=== PATIENT | female | born 1980 | race Caucasian/White ===

== ENCOUNTER 2020-08-11 11:15 | Outpatient (RCR) | payer OTHER, SELFPAY ==
--- NOTE | 2020-05-05 13:05 | PT.OIE ---
Current Diagnoses Pain in left shoulder (05/05/20) Abnormal posture (05/05/20) Past Medical History (Last Updated 04/14/20 @ 15:33 by La Mcpherson PA-C) Left shoulder pain (Acute) Visit Care Team Role Provider Type La Mcpherson PA-C Attending Provider Advanced Ticket Sales Supervisor Primary Care Provider Referring Provider Specialty: Internal Medicine Address: [address] [place] [address], [id number] Email: [email or web address] Physical Therapy Initial Evaluation PT-OP-A Visit Information Start: 05/05/20 08:50 Freq: Status: Active Protocol: Document 05/05/20 08:51 AW (Rec: 05/05/20 08:53 AW [id number]) Out-Patient Physical Therapy Visit Information Visit Information Visit Type Initial Evaluation Visit Start Time 11:15 Visit Stop Time 12:05 Total Visit Minutes 50 Visit Number 1 Evaluation Information Evaluation Date 05/05/20 PT-OP-B Current Condition Start: 05/05/20 08:50 Freq: Status: Active Protocol: Document 05/05/20 08:51 AW (Rec: 05/05/20 08:53 AW [id number]) Current Condition History of Current Condition Onset Date 04/11/20 Current Complaints left shoulder pain History of Current Condition Piedad was doing heavy gardening with a lot of rock shoveling and gardening. She had onset of pain ~04/11/20. She moved 5 cubic yards of rocks in a few days and noticed pain beginning on Sunday. When it didn't improve , she went to urgent care on where she received treatment with toradol. She was also provided with a predinisone burst with taper which she finished. Treatment was effective, but she would like to regain full pain-free ROM. She attempted to do some shoveling a few days ago, but noticed pain after a few minutes so she stopped. She is using Tylenol prn and finds it effective for managing her pain. Prior Treatments and Tests Toradol 30 mg at urgent care . Ice, tylenol, ibuprofen Pt has had prior PT for knee problems including ACL reconstruction x 2. Future Testing and Treatments Planned None identified. Treatment Goals Patient/Caregiver Goals Pt has more gardening projects she would like to complete but is willing to modify her activity at this time. Her shoulder bothers her when biking, running, and hiking. She hopes to get back to those activities without pain. 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 Baseline Function- Recreation/Hobbies Pt stays active with weightlifting, yoga, hiking, biking, gardening. Current Functional Impairments (Reported) Functional Limitations- ADL's Difficulty donning a shirt at first but symtoms have improved. Functional Limitations- Work/School Pt finds her left shoulder aching during prolonged periods of time at the computer. Functional Limitations- Recreation/ Pain with gardening, biking, Hobbies hiking, running, and yoga Personal Factors Other Personal Factors That May Effect (+) positive prior experience Therapy/Recovery with PT (+) pt is generally active and accustomed to exercise (-) long hours at a computer required for work PT-OP-C Subjective Start: 05/05/20 08:50 Freq: Status: Active Protocol: Document 05/05/20 08:51 AW (Rec: 05/05/20 13:04 AW [id number]) OP-PT Subjective Patient Comments Patient Comments I'm not in much pain but I'd like to be able to do heavy gardening without hurting myself Patient Questionnaires Quick Dash- Upper Extremity Quick Dash UE Score 18 Quick Dash UE Impairment 1 to 19% Impaired (Score 1-19) OP-PT Pain Assessment Pain Assessment Grid Paper Pain Assessment Grid Completed Yes Location left shoulder Pain Location Details lateral and posterior Intensity 2 Scale Used Numeric (0 - 10) Description Aching Frequency Frequent Radiating Location (-) Pain Aggravating Factors Position,Changing Position, Activity,Exercise Pain Alleviating Factors Cold,Medication Home Pain Medication Use Pain Medications Used Yes Home Pain Medication Frequency Tylenol, ibuprofen prn PT-OP-F Manual Assessment Start: 05/05/20 08:50 Freq: Status: Active Protocol: Document 05/05/20 08:51 AW (Rec: 05/05/20 13:04 AW [id number]) Manual Assessments Soft Tissue Assessment Soft Tissue Mobility Assessment Pt has increased density of bilateral upper trapezius. Joint Mobility Assessment Joint Mobility Assessment Left GH posterior glides painful but without restriction. Inferior glides normal bilaterally without pain. Decreased A/P glides upper thoracic spine. PT-OP-H Neuro Start: 05/05/20 08:50 Freq: Status: Active Protocol: Document 05/05/20 08:51 AW (Rec: 05/05/20 13:04 AW [id number]) Sensation Evaluation Gross Sensation Gross Sensation WNL PT-OP-J Posture/Palpation/Skin Start: 05/05/20 08:50 Freq: Status: Active Protocol: Document 05/05/20 08:51 AW (Rec: 05/05/20 13:04 AW [id number]) Posture Evaluation Position Sitting Evaluation View Lateral Head/C-Spine Posture Forward Head Shoulder Posture (L) Rounded,(R) Rounded,(L) Forward,(R) Forward Scapula Posture (L) Protracted,(R) Protracted Arm Posture (L) Internally Rotated,(R) Internally Rotated PT-OP-K Range of Motion Start: 05/05/20 08:50 Freq: Status: Active Protocol: Document 05/05/20 08:51 AW (Rec: 05/05/20 13:04 AW [id number]) Cervical Spine Range of Motion Cervical Spine Active Degrees Testing Position Sitting Flexion 60 Extension 75 Rotation Left 47 Rotation Right 40 Lateral Flexion Left 40 Lateral Flexion Right 40 ROM Limitations Soft Tissue Tightness Shoulder Goniometric Range of Motion Shoulder Left Active Shoulder ROM WFL Yes Testing Position Sitting Flexion 180 Abduction 180 External Rotation at 90 degrees 80 Abduction Internal Rotation Behind Back (text) T8 Right Active Shoulder ROM WFL Yes Flexion 183 Abduction 182 External Rotation at 90 degrees 85 Abduction Internal Rotation Behind Back (text) T3 Shoulder ROM Limitations Shoulder ROM Limitations Soft Tissue Tightness,Pain Comments Pt has left shoulder pain at end range flexion and abduction Elbow/Forearm Range of Motion Elbow/Forearm ROM Limitations Comments Elbow AROM/PROM WNL bilaterally PT-OP-L Special Tests Start: 05/05/20 08:50 Freq: Status: Active Protocol: Document 05/05/20 08:51 AW (Rec: 05/05/20 13:04 AW [id number]) Special Tests Shoulder Special Tests painful arc Test Results negative bilaterally Drop Arm Rotator Cuff Test Results negative bilaterally Cunningham Nicolás Impingement Test Results normal R; vaguely positive L PT-OP-M Strength Start: 05/05/20 08:50 Freq: Status: Active Protocol: Document 05/05/20 08:51 AW (Rec: 05/05/20 13:04 AW [id number]) Cervical Spine Strength Cervical Spine Manual Muscle Testing Testing Position Sitting Flexion (C1-2) 5 Normal Extension 5 Normal Rotation Left 4+ Good+ Rotation Right 4+ Good+ Lateral Flexion Left (C3) 5 Normal Lateral Flexion Right (C3) 5 Normal Shoulder Strength Shoulder Manual Muscle Testing Right Flexion 5 Normal Extension 5 Normal Abduction (C5) 5 Normal External Rotation 5 Normal Left Flexion 4+ Good+ Abduction (C5) 4+ Good+ External Rotation 4+ Good+ Comments painful ER PT-OP-Q Treatments Start: 05/05/20 08:50 Freq: Status: Active Protocol: Document 05/05/20 08:51 AW (Rec: 05/05/20 13:04 AW [id number]) Therapeutic Exercises Sitting Exercises upper thoracic extension SNAG with towel/chin tuck Sitting Exercise Name thoracic extension SNAG with towel and chin tuck Equipment Used towel Reps/Minutes 5 second hold; total of 5 minutes Comments cues and visual demonstration for placement of towel edge at CT junction scapular retraction Sitting Exercise Name scapular retraction Side bilateral Reps/Minutes 15 reps Comments cues for gentle pull and hold 5 seconds each rep Standing Exercises doorway pec stretch Standing Exercise Name doorway pec stretch Reps/Minutes 3 minutes total Comments cues for relaxed shoulders PT-OP-T Assessment and Plan Start: 05/05/20 08:50 Freq: Status: Active Protocol: Document 05/05/20 08:51 AW (Rec: 05/05/20 13:04 AW [id number]) Physical Therapy Assessment Rehab Potential Rehabilitation Potential Excellent Evaluation Complexity Number of Personal Factors/Comorbidities 1-2 Number of Body Systems Impaired 1-2 Clinical Presentation at Evaluation Stable Impairments Impairments Functional Activities, Functional Mobility,Pain, Posture,ROM,Soft Tissue Mobility,Strength Goals Four Impairment pain with gardening Short Term Goal (STG) Pt will tolerate shoveling 10 minutes without increased pain STG Duration 06/02/20 Pole Truck Driver Goal (LTG) Pt will tolerate shoveling or raking 20 minutes without increased pain LTG Duration 06/30/20 Three Impairment strength Halfway Goal (LTG) Pt will demonstrate 5/5 strength in left shoulder without increase in pain LTG Duration 06/30/20 Two Impairment functional impairment in daily activities Short Term Goal (STG) Pt will score 10 or less on QuickDash to demonstrate improved daily function STG Duration 06/02/20 Halfway Goal (LTG) Pt will score 5 or less on QuickDash to demonstrate improvement in daily functional activities LTG Duration 06/30/20 One Impairment Pt has no appropriate HEP Short Term Goal (STG) Pt will be independent with HEP for support of therapy services provided in clinic STG Duration 06/02/20 Pole Truck Driver Goal (LTG) Pt will be independent with maintenance HEP LTG Duration 06/30/20 Assessment Summary Assessment Piedad presents to outpatient PT with complaints of left shoulder pain which she noticed after spending several days on a heavy gardening project. Her habitual posture with rounded shoulders and protracted scapulae are likely contributing to continued pain symptoms. On evluation, pt has pain at end-range flexion and abduction, pain with resisted external rotation, dense upper traps, weak lower traps, and tight pectoral muscles. Pt will benefit from skilled PT to address posture and strengh to increase her ability to return to heavy gardening projects and to enjoy yoga, biking, running, and hiking without shoulder pain. Physical Therapy Plan Frequency and Duration Frequency of Treatment 1x/Week Duration of Treatment 8 Plan of Care Start Date 05/05/20 Plan of Care End Date 06/30/20 Therapeutic Interventions Therapeutic Interventions Home Exercise Program,Joint Mobilizations,Manual Therapy, Self-Care/Home Management,Soft Tissue Mobilization,Taping, Therapeutic Activities, Therapeutic Exercises Modalities Cold Pack/Ice Massage,Hot Packs Next Visit Focus/Plan Next Note Type Treatment Note Next Visit Plan assess response to initial HEP ; progress thoracic extension mobility and initiate strengthening for left shoulder
--- NOTE | 2020-05-05 13:05 | PT.OPPOC ---
Physical, Occupational & Speech Therapy At [facility] Current Diagnoses Pain in left shoulder (05/05/20) Abnormal posture (05/05/20) Visit Care Team Role Provider Type La Mcpherson PA-C Attending Provider Advanced Catalyst Operator Primary Care Provider Referring Provider Specialty: Internal Medicine Address: [address] [place] [address], [id number] Email: [email or web address] Plan Of Care PT-OP-T Assessment and Plan Start: 05/05/20 08:50 Freq: Status: Active Protocol: Document 05/05/20 08:51 AW (Rec: 05/05/20 13:04 AW [id number]) Physical Therapy Assessment Rehab Potential Rehabilitation Potential Excellent Evaluation Complexity Number of Personal Factors/Comorbidities 1-2 Number of Body Systems Impaired 1-2 Clinical Presentation at Evaluation Stable Impairments Impairments Functional Activities, Functional Mobility,Pain, Posture,ROM,Soft Tissue Mobility,Strength Goals Four Impairment pain with gardening Short Term Goal (STG) Pt will tolerate shoveling 10 minutes without increased pain STG Duration 06/02/20 Custodial Goal (LTG) Pt will tolerate shoveling or raking 20 minutes without increased pain LTG Duration 06/30/20 Three Impairment strength Learning Disabilities Resource Teacher Goal (LTG) Pt will demonstrate 5/5 strength in left shoulder without increase in pain LTG Duration 06/30/20 Two Impairment functional impairment in daily activities Short Term Goal (STG) Pt will score 10 or less on QuickDash to demonstrate improved daily function STG Duration 06/02/20 Custodial Goal (LTG) Pt will score 5 or less on QuickDash to demonstrate improvement in daily functional activities LTG Duration 06/30/20 One Impairment Pt has no appropriate HEP Short Term Goal (STG) Pt will be independent with HEP for support of therapy services provided in clinic STG Duration 06/02/20 Learning Disabilities Resource Teacher Goal (LTG) Pt will be independent with maintenance HEP LTG Duration 06/30/20 Assessment Summary Assessment Piedad presents to outpatient PT with complaints of left shoulder pain which she noticed after spending several days on a heavy gardening project. Her habitual posture with rounded shoulders and protracted scapulae are likely contributing to continued pain symptoms. On evluation, pt has pain at end-range flexion and abduction, pain with resisted external rotation, dense upper traps, weak lower traps, and tight pectoral muscles. Pt will benefit from skilled PT to address posture and strengh to increase her ability to return to heavy gardening projects and to enjoy yoga, biking, running, and hiking without shoulder pain. Physical Therapy Plan Frequency and Duration Frequency of Treatment 1x/Week Duration of Treatment 8 Plan of Care Start Date 05/05/20 Plan of Care End Date 06/30/20 Therapeutic Interventions Therapeutic Interventions Home Exercise Program,Joint Mobilizations,Manual Therapy, Self-Care/Home Management,Soft Tissue Mobilization,Taping, Therapeutic Activities, Therapeutic Exercises Modalities Cold Pack/Ice Massage,Hot Packs Next Visit Focus/Plan Next Note Type Treatment Note Next Visit Plan assess response to initial HEP ; progress thoracic extension mobility and initiate strengthening for left shoulder Plan of Care Dates Plan of Care Start Date 05/05/20 Plan of Care End Date 06/30/20 Electronically Signed by: Martha Stevens PT 05/05/20 [id number] Please Sign and Return: I have reviewed this Plan of Care and certify that the skilled therapy services above are required to meet the patient?s needs. Physician Signature Date Printed Name and Credentials Clinical Instructor Signature Printed Name and Credentials
--- NOTE | 2020-05-12 12:43 | PT.OTN ---
Current Diagnoses Pain in left shoulder (05/12/20) Abnormal posture (05/12/20) Physical Therapy Treatment Note PT-OP-A Visit Information Start: 05/05/20 08:50 Freq: Status: Active Protocol: Document 05/12/20 12:26 AW (Rec: 05/12/20 12:43 AW [id number]) Out-Patient Physical Therapy Visit Information Visit Information Visit Type Treatment Note Visit Start Time 11:15 Visit Stop Time 11:59 Total Visit Minutes 44 Visit Number 2 Evaluation Information Evaluation Date 05/05/20 PT-OP-B Current Condition Start: 05/05/20 08:50 Freq: Status: Active Protocol: Document 05/05/20 08:51 AW (Rec: 05/05/20 08:53 AW [id number]) Current Condition History of Current Condition Onset Date 04/11/20 Current Complaints left shoulder pain History of Current Condition Piedad was doing heavy gardening with a lot of rock shoveling and gardening. She had onset of pain ~04/11/20. She moved 5 cubic yards of rocks in a few days and noticed pain beginning on Sunday. When it didn't improve , she went to urgent care on where she received treatment with toradol. She was also provided with a predinisone burst with taper which she finished. Treatment was effective, but she would like to regain full pain-free ROM. She attempted to do some shoveling a few days ago, but noticed pain after a few minutes so she stopped. She is using Tylenol prn and finds it effective for managing her pain. Prior Treatments and Tests Toradol 30 mg at urgent care . Ice, tylenol, ibuprofen Pt has had prior PT for knee problems including ACL reconstruction x 2. Future Testing and Treatments Planned None identified. Treatment Goals Patient/Caregiver Goals Pt has more gardening projects she would like to complete but is willing to modify her activity at this time. Her shoulder bothers her when biking, running, and hiking. She hopes to get back to those activities without pain. 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 Baseline Function- Recreation/Hobbies Pt stays active with weightlifting, yoga, hiking, biking, gardening. Current Functional Impairments (Reported) Functional Limitations- ADL's Difficulty donning a shirt at first but symtoms have improved. Functional Limitations- Work/School Pt finds her left shoulder aching during prolonged periods of time at the computer. Functional Limitations- Recreation/ Pain with gardening, biking, Hobbies hiking, running, and yoga Personal Factors Other Personal Factors That May Effect (+) positive prior experience Therapy/Recovery with PT (+) pt is generally active and accustomed to exercise (-) long hours at a computer required for work PT-OP-C Subjective Start: 05/05/20 08:50 Freq: Status: Active Protocol: Document 05/12/20 12:26 AW (Rec: 05/12/20 12:43 AW [id number]) OP-PT Subjective Patient Comments Patient Comments Those exercises you gave me were deceptively simple. Pt reports less pain in left shoulder, some aggravation to right shoulder. PT-OP-F Manual Assessment Start: 05/05/20 08:50 Freq: Status: Active Protocol: Document 05/05/20 08:51 AW (Rec: 05/05/20 13:04 AW [id number]) Manual Assessments Soft Tissue Assessment Soft Tissue Mobility Assessment Pt has increased density of bilateral upper trapezius. Joint Mobility Assessment Joint Mobility Assessment Left GH posterior glides painful but without restriction. Inferior glides normal bilaterally without pain. Decreased A/P glides upper thoracic spine. PT-OP-H Neuro Start: 05/05/20 08:50 Freq: Status: Active Protocol: Document 05/05/20 08:51 AW (Rec: 05/05/20 13:04 AW [id number]) Sensation Evaluation Gross Sensation Gross Sensation WNL PT-OP-J Posture/Palpation/Skin Start: 05/05/20 08:50 Freq: Status: Active Protocol: Document 05/05/20 08:51 AW (Rec: 05/05/20 13:04 AW [id number]) Posture Evaluation Position Sitting Evaluation View Lateral Head/C-Spine Posture Forward Head Shoulder Posture (L) Rounded,(R) Rounded,(L) Forward,(R) Forward Scapula Posture (L) Protracted,(R) Protracted Arm Posture (L) Internally Rotated,(R) Internally Rotated PT-OP-K Range of Motion Start: 05/05/20 08:50 Freq: Status: Active Protocol: Document 05/05/20 08:51 AW (Rec: 05/05/20 13:04 AW [id number]) Cervical Spine Range of Motion Cervical Spine Active Degrees Testing Position Sitting Flexion 60 Extension 75 Rotation Left 47 Rotation Right 40 Lateral Flexion Left 40 Lateral Flexion Right 40 ROM Limitations Soft Tissue Tightness Shoulder Goniometric Range of Motion Shoulder Left Active Shoulder ROM WFL Yes Testing Position Sitting Flexion 180 Abduction 180 External Rotation at 90 degrees 80 Abduction Internal Rotation Behind Back (text) T8 Right Active Shoulder ROM WFL Yes Flexion 183 Abduction 182 External Rotation at 90 degrees 85 Abduction Internal Rotation Behind Back (text) T3 Shoulder ROM Limitations Shoulder ROM Limitations Soft Tissue Tightness,Pain Comments Pt has left shoulder pain at end range flexion and abduction Elbow/Forearm Range of Motion Elbow/Forearm ROM Limitations Comments Elbow AROM/PROM WNL bilaterally PT-OP-L Special Tests Start: 05/05/20 08:50 Freq: Status: Active Protocol: Document 05/05/20 08:51 AW (Rec: 05/05/20 13:04 AW [id number]) Special Tests Shoulder Special Tests painful arc Test Results negative bilaterally Drop Arm Rotator Cuff Test Results negative bilaterally Cunningham Nicolás Impingement Test Results normal R; vaguely positive L PT-OP-M Strength Start: 05/05/20 08:50 Freq: Status: Active Protocol: Document 05/05/20 08:51 AW (Rec: 05/05/20 13:04 AW [id number]) Cervical Spine Strength Cervical Spine Manual Muscle Testing Testing Position Sitting Flexion (C1-2) 5 Normal Extension 5 Normal Rotation Left 4+ Good+ Rotation Right 4+ Good+ Lateral Flexion Left (C3) 5 Normal Lateral Flexion Right (C3) 5 Normal Shoulder Strength Shoulder Manual Muscle Testing Right Flexion 5 Normal Extension 5 Normal Abduction (C5) 5 Normal External Rotation 5 Normal Left Flexion 4+ Good+ Abduction (C5) 4+ Good+ External Rotation 4+ Good+ Comments painful ER PT-OP-Q Treatments Start: 05/05/20 08:50 Freq: Status: Active Protocol: Document 05/12/20 12:26 AW (Rec: 05/12/20 12:43 AW [id number]) Therapeutic Exercises Supine Exercises foam half-roll pec stretch Supine Exercise Name foam half-roll pec stretch Reps/Minutes 3 min Comments with active abduction/ adduction Sitting Exercises scapular retraction Sitting Exercise Name scapular retraction Side bilateral Reps/Minutes 15 reps Comments cues for gentle pull and hold 5 seconds each rep Standing Exercises reactive isometric walkouts IR/ER Standing Exercise Name reactive isometric walkouts IR /ER Side bilateral Resistance level 1 Equipment Used TB Reps/Minutes 2 laps each Comments used towel for cue to lock elbow to ribs resisted extension Standing Exercise Name resisted extension Side bilateral Resistance level 1 Equipment Used TB Reps/Minutes 15 Comments added to HEP resisted rows Standing Exercise Name resisted rows Side bilateral Resistance level 1 Equipment Used TB Reps/Minutes 15 Comments added to HEP shoulder extension with PVC Standing Exercise Name shoulder extension with PVC Side bilateral Equipment Used pvc pipe Reps/Minutes 10 reps x 2 Comments cues to maintain scapular retraction standing thoracic extension Standing Exercise Name standing thoracic extension Equipment Used treadmill rail Reps/Minutes 30 sec x 3 Comments cues to drop chest between arms, retract chin Manual Therapy Treatment Soft Tissue Mobilization STM Body Location bilat upper traps, lev scap, pectorals Mobilization Type Myofascial Release,Sustained Pressure,Trigger Point Release Intensity/Depth Moderate Body Position Hooklying Comments upper traps density reduced post STM with improved abduction ROM PT-OP-T Assessment and Plan Start: 05/05/20 08:50 Freq: Status: Active Protocol: Document 05/12/20 12:26 AW (Rec: 05/12/20 12:43 AW [id number]) Physical Therapy Assessment Impairments Impairments Functional Activities, Functional Mobility,Pain, Posture,ROM,Soft Tissue Mobility,Strength Goals Four Impairment pain with gardening Short Term Goal (STG) Pt will tolerate shoveling 10 minutes without increased pain STG Duration 06/02/20 Rubber Stamp Maker Goal (LTG) Pt will tolerate shoveling or raking 20 minutes without increased pain LTG Duration 06/30/20 Three Impairment strength Detention Goal (LTG) Pt will demonstrate 5/5 strength in left shoulder without increase in pain LTG Duration 06/30/20 Two Impairment functional impairment in daily activities Short Term Goal (STG) Pt will score 10 or less on QuickDash to demonstrate improved daily function STG Duration 06/02/20 Detention Goal (LTG) Pt will score 5 or less on QuickDash to demonstrate improvement in daily functional activities LTG Duration 06/30/20 One Impairment Pt has no appropriate HEP Short Term Goal (STG) Pt will be independent with HEP for support of therapy services provided in clinic STG Duration 06/02/20 Detention Goal (LTG) Pt will be independent with maintenance HEP LTG Duration 06/30/20 Assessment Summary Assessment Treatment today focused on reinforcement of postural cues , anterior muscle length, and posterior/scapular strengthening. Pt tolerated well but did note slight twinge R anterior shoulder during rows which were then discontinued. Pt educated to perform rows at home only in pain-free range. Physical Therapy Plan Frequency and Duration Frequency of Treatment 1x/Week Duration of Treatment 8 Plan of Care Start Date 05/05/20 Plan of Care End Date 06/30/20 Therapeutic Interventions Therapeutic Interventions Home Exercise Program,Joint Mobilizations,Manual Therapy, Self-Care/Home Management,Soft Tissue Mobilization,Taping, Therapeutic Activities, Therapeutic Exercises Modalities Cold Pack/Ice Massage,Hot Packs Next Visit Focus/Plan Next Note Type Treatment Note Next Visit Plan progress thoracic extension mobility and strengthening for left shoulder
--- NOTE | 2020-05-18 12:12 | PT.OTN ---
Current Diagnoses Pain in left shoulder (05/18/20) Abnormal posture (05/18/20) Physical Therapy Treatment Note PT-OP-A Visit Information Start: 05/05/20 08:50 Freq: Status: Active Protocol: Document 05/18/20 11:11 [facility] (Rec: 05/18/20 12:12 [facility] [id number]) Out-Patient Physical Therapy Visit Information Visit Information Visit Type Treatment Note Visit Start Time 11:15 Visit Stop Time 12:02 Total Visit Minutes 47 Visit Number 3 Number of CUTTING MACHINE OPERATOR Visits 0 PT-OP-B Current Condition Start: 05/05/20 08:50 Freq: Status: Active Protocol: Document 05/05/20 08:51 AW (Rec: 05/05/20 08:53 AW [id number]) Current Condition History of Current Condition Onset Date 04/11/20 Current Complaints left shoulder pain History of Current Condition Piedad was doing heavy gardening with a lot of rock shoveling and gardening. She had onset of pain ~04/11/20. She moved 5 cubic yards of rocks in a few days and noticed pain beginning on Sunday. When it didn't improve , she went to urgent care on where she received treatment with toradol. She was also provided with a predinisone burst with taper which she finished. Treatment was effective, but she would like to regain full pain-free ROM. She attempted to do some shoveling a few days ago, but noticed pain after a few minutes so she stopped. She is using Tylenol prn and finds it effective for managing her pain. Prior Treatments and Tests Toradol 30 mg at urgent care . Ice, tylenol, ibuprofen Pt has had prior PT for knee problems including ACL reconstruction x 2. Future Testing and Treatments Planned None identified. Treatment Goals Patient/Caregiver Goals Pt has more gardening projects she would like to complete but is willing to modify her activity at this time. Her shoulder bothers her when biking, running, and hiking. She hopes to get back to those activities without pain. 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 Baseline Function- Recreation/Hobbies Pt stays active with weightlifting, yoga, hiking, biking, gardening. Current Functional Impairments (Reported) Functional Limitations- ADL's Difficulty donning a shirt at first but symtoms have improved. Functional Limitations- Work/School Pt finds her left shoulder aching during prolonged periods of time at the computer. Functional Limitations- Recreation/ Pain with gardening, biking, Hobbies hiking, running, and yoga Personal Factors Other Personal Factors That May Effect (+) positive prior experience Therapy/Recovery with PT (+) pt is generally active and accustomed to exercise (-) long hours at a computer required for work PT-OP-C Subjective Start: 05/05/20 08:50 Freq: Status: Active Protocol: Document 05/18/20 11:11 [facility] (Rec: 05/18/20 12:12 [facility] [id number]) OP-PT Subjective Patient Comments Patient Comments Pt reports no change. Notes R shoulder has had some pain. PT-OP-F Manual Assessment Start: 05/05/20 08:50 Freq: Status: Active Protocol: Document 05/05/20 08:51 AW (Rec: 05/05/20 13:04 AW [id number]) Manual Assessments Soft Tissue Assessment Soft Tissue Mobility Assessment Pt has increased density of bilateral upper trapezius. Joint Mobility Assessment Joint Mobility Assessment Left GH posterior glides painful but without restriction. Inferior glides normal bilaterally without pain. Decreased A/P glides upper thoracic spine. PT-OP-H Neuro Start: 05/05/20 08:50 Freq: Status: Active Protocol: Document 05/05/20 08:51 AW (Rec: 05/05/20 13:04 AW [id number]) Sensation Evaluation Gross Sensation Gross Sensation WNL PT-OP-J Posture/Palpation/Skin Start: 05/05/20 08:50 Freq: Status: Active Protocol: Document 05/05/20 08:51 AW (Rec: 05/05/20 13:04 AW [id number]) Posture Evaluation Position Sitting Evaluation View Lateral Head/C-Spine Posture Forward Head Shoulder Posture (L) Rounded,(R) Rounded,(L) Forward,(R) Forward Scapula Posture (L) Protracted,(R) Protracted Arm Posture (L) Internally Rotated,(R) Internally Rotated PT-OP-K Range of Motion Start: 05/05/20 08:50 Freq: Status: Active Protocol: Document 05/05/20 08:51 AW (Rec: 05/05/20 13:04 AW [id number]) Cervical Spine Range of Motion Cervical Spine Active Degrees Testing Position Sitting Flexion 60 Extension 75 Rotation Left 47 Rotation Right 40 Lateral Flexion Left 40 Lateral Flexion Right 40 ROM Limitations Soft Tissue Tightness Shoulder Goniometric Range of Motion Shoulder Left Active Shoulder ROM WFL Yes Testing Position Sitting Flexion 180 Abduction 180 External Rotation at 90 degrees 80 Abduction Internal Rotation Behind Back (text) T8 Right Active Shoulder ROM WFL Yes Flexion 183 Abduction 182 External Rotation at 90 degrees 85 Abduction Internal Rotation Behind Back (text) T3 Shoulder ROM Limitations Shoulder ROM Limitations Soft Tissue Tightness,Pain Comments Pt has left shoulder pain at end range flexion and abduction Elbow/Forearm Range of Motion Elbow/Forearm ROM Limitations Comments Elbow AROM/PROM WNL bilaterally PT-OP-L Special Tests Start: 05/05/20 08:50 Freq: Status: Active Protocol: Document 05/05/20 08:51 AW (Rec: 05/05/20 13:04 AW [id number]) Special Tests Shoulder Special Tests painful arc Test Results negative bilaterally Drop Arm Rotator Cuff Test Results negative bilaterally [employer] Nicolás Impingement Test Results normal R; vaguely positive L PT-OP-M Strength Start: 05/05/20 08:50 Freq: Status: Active Protocol: Document 05/05/20 08:51 AW (Rec: 05/05/20 13:04 AW [id number]) Cervical Spine Strength Cervical Spine Manual Muscle Testing Testing Position Sitting Flexion (C1-2) 5 Normal Extension 5 Normal Rotation Left 4+ Good+ Rotation Right 4+ Good+ Lateral Flexion Left (C3) 5 Normal Lateral Flexion Right (C3) 5 Normal Shoulder Strength Shoulder Manual Muscle Testing Right Flexion 5 Normal Extension 5 Normal Abduction (C5) 5 Normal External Rotation 5 Normal Left Flexion 4+ Good+ Abduction (C5) 4+ Good+ External Rotation 4+ Good+ Comments painful ER PT-OP-Q Treatments Start: 05/05/20 08:50 Freq: Status: Active Protocol: Document 05/18/20 11:11 [facility] (Rec: 05/18/20 12:12 [facility] [id number]) Therapeutic Exercises Standing Exercises wall posture Standing Exercise Name w/90/90 ER Side bilateral Reps/Minutes 15 resisted extension Standing Exercise Name resisted extension Side bilateral Resistance level 1 Equipment Used TB Reps/Minutes 15 Comments reviewed for HEP resisted rows Standing Exercise Name resisted rows Side bilateral Resistance level 1 Equipment Used TB Reps/Minutes 15 Comments reviewd for HEP shoulder extension with PVC Standing Exercise Name shoulder extension with PVC Side bilateral Equipment Used pvc pipe Reps/Minutes 10 reps x 2 Comments cues to maintain scapular retraction standing thoracic extension Standing Exercise Name standing thoracic extension Equipment Used treadmill rail Reps/Minutes 30 sec Comments cues to drop chest between arms, retract chin Manual Therapy Treatment Soft Tissue Mobilization STM Body Location L upper traps, lev scap, scalenes Mobilization Type Myofascial Release,Sustained Pressure,Trigger Point Release Intensity/Depth Moderate Body Position Hooklying Comments upper traps density reduced post STM with improved overhead ROM Joint Mobilizations AC Joint gapping FM L GH Joint L Direction post, inf, distraction, lat glide FM Self-Care/Home Management Treatment Education Other Education discussion of optimal desk set up-difficult to set up d/t using kitchen table PT-OP-T Assessment and Plan Start: 05/05/20 08:50 Freq: Status: Active Protocol: Document 05/18/20 11:11 [facility] (Rec: 05/18/20 12:12 [facility] [id number]) Physical Therapy Assessment Goals Four Impairment pain with gardening Short Term Goal (STG) Pt will tolerate shoveling 10 minutes without increased pain STG Duration 06/02/20 Candy Dipper Goal (LTG) Pt will tolerate shoveling or raking 20 minutes without increased pain LTG Duration 06/30/20 Three Impairment strength [facility] Goal (LTG) Pt will demonstrate 5/5 strength in left shoulder without increase in pain LTG Duration 06/30/20 Two Impairment functional impairment in daily activities Short Term Goal (STG) Pt will score 10 or less on QuickDash to demonstrate improved daily function STG Duration 06/02/20 [facility] Goal (LTG) Pt will score 5 or less on QuickDash to demonstrate improvement in daily functional activities LTG Duration 06/30/20 One Impairment Pt has no appropriate HEP Short Term Goal (STG) Pt will be independent with HEP for support of therapy services provided in clinic STG Duration 06/02/20 Candy Dipper Goal (LTG) Pt will be independent with maintenance HEP LTG Duration 06/30/20 Assessment Summary Assessment Pt had improved ROM of overhead motions with improved GH mechanics after manual treatment today. Significant focus with exercises was needed for doing scap retraction vs TL junction ext. She was able to imrpove with cueing. Physical Therapy Plan Frequency and Duration Frequency of Treatment 1x/Week Duration of Treatment 8 Plan of Care Start Date 05/05/20 Plan of Care End Date 06/30/20 Therapeutic Interventions Therapeutic Interventions Home Exercise Program,Joint Mobilizations,Manual Therapy, Self-Care/Home Management,Soft Tissue Mobilization,Taping, Therapeutic Activities, Therapeutic Exercises Modalities Cold Pack/Ice Massage,Hot Packs Next Visit Focus/Plan Next Note Type Treatment Note Next Visit Plan progress thoracic extension mobility and strengthening for left shoulder
--- NOTE | 2020-05-26 16:30 | PT.OTN ---
Current Diagnoses Pain in left shoulder (05/26/20) Abnormal posture (05/26/20) Physical Therapy Treatment Note PT-OP-A Visit Information Start: 05/05/20 08:50 Freq: Status: Active Protocol: Document 05/26/20 16:13 AW (Rec: 05/27/20 16:30 AW [email or web address]) Out-Patient Physical Therapy Visit Information Visit Information Visit Type Treatment Note Visit Start Time 15:15 Visit Stop Time 16:00 Total Visit Minutes 45 Visit Number 4 Number of BRIDGE MAINTAINER Visits 0 Evaluation Information Evaluation Date 05/05/20 PT-OP-B Current Condition Start: 05/05/20 08:50 Freq: Status: Active Protocol: Document 05/05/20 08:51 AW (Rec: 05/05/20 08:53 AW [id number]) Current Condition History of Current Condition Onset Date 04/11/20 Current Complaints left shoulder pain History of Current Condition Piedad was doing heavy gardening with a lot of rock shoveling and gardening. She had onset of pain ~04/11/20. She moved 5 cubic yards of rocks in a few days and noticed pain beginning on Sunday. When it didn't improve , she went to urgent care on where she received treatment with toradol. She was also provided with a predinisone burst with taper which she finished. Treatment was effective, but she would like to regain full pain-free ROM. She attempted to do some shoveling a few days ago, but noticed pain after a few minutes so she stopped. She is using Tylenol prn and finds it effective for managing her pain. Prior Treatments and Tests Toradol 30 mg at urgent care . Ice, tylenol, ibuprofen Pt has had prior PT for knee problems including ACL reconstruction x 2. Future Testing and Treatments Planned None identified. Treatment Goals Patient/Caregiver Goals Pt has more gardening projects she would like to complete but is willing to modify her activity at this time. Her shoulder bothers her when biking, running, and hiking. She hopes to get back to those activities without pain. 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 Baseline Function- Recreation/Hobbies Pt stays active with weightlifting, yoga, hiking, biking, gardening. Current Functional Impairments (Reported) Functional Limitations- ADL's Difficulty donning a shirt at first but symtoms have improved. Functional Limitations- Work/School Pt finds her left shoulder aching during prolonged periods of time at the computer. Functional Limitations- Recreation/ Pain with gardening, biking, Hobbies hiking, running, and yoga Personal Factors Other Personal Factors That May Effect (+) positive prior experience Therapy/Recovery with PT (+) pt is generally active and accustomed to exercise (-) long hours at a computer required for work PT-OP-C Subjective Start: 05/05/20 08:50 Freq: Status: Active Protocol: Document 05/26/20 16:13 AW (Rec: 05/27/20 16:30 AW [email or web address]) OP-PT Subjective Patient Comments Patient Comments Pt continues to report improvement in left shoulder, aggravation in right shoulder. PT-OP-F Manual Assessment Start: 05/05/20 08:50 Freq: Status: Active Protocol: Document 05/05/20 08:51 AW (Rec: 05/05/20 13:04 AW [id number]) Manual Assessments Soft Tissue Assessment Soft Tissue Mobility Assessment Pt has increased density of bilateral upper trapezius. Joint Mobility Assessment Joint Mobility Assessment Left GH posterior glides painful but without restriction. Inferior glides normal bilaterally without pain. Decreased A/P glides upper thoracic spine. PT-OP-H Neuro Start: 05/05/20 08:50 Freq: Status: Active Protocol: Document 05/05/20 08:51 AW (Rec: 05/05/20 13:04 AW [id number]) Sensation Evaluation Gross Sensation Gross Sensation WNL PT-OP-J Posture/Palpation/Skin Start: 05/05/20 08:50 Freq: Status: Active Protocol: Document 05/05/20 08:51 AW (Rec: 05/05/20 13:04 AW [id number]) Posture Evaluation Position Sitting Evaluation View Lateral Head/C-Spine Posture Forward Head Shoulder Posture (L) Rounded,(R) Rounded,(L) Forward,(R) Forward Scapula Posture (L) Protracted,(R) Protracted Arm Posture (L) Internally Rotated,(R) Internally Rotated PT-OP-K Range of Motion Start: 05/05/20 08:50 Freq: Status: Active Protocol: Document 05/05/20 08:51 AW (Rec: 05/05/20 13:04 AW [id number]) Cervical Spine Range of Motion Cervical Spine Active Degrees Testing Position Sitting Flexion 60 Extension 75 Rotation Left 47 Rotation Right 40 Lateral Flexion Left 40 Lateral Flexion Right 40 ROM Limitations Soft Tissue Tightness Shoulder Goniometric Range of Motion Shoulder Left Active Shoulder ROM WFL Yes Testing Position Sitting Flexion 180 Abduction 180 External Rotation at 90 degrees 80 Abduction Internal Rotation Behind Back (text) T8 Right Active Shoulder ROM WFL Yes Flexion 183 Abduction 182 External Rotation at 90 degrees 85 Abduction Internal Rotation Behind Back (text) T3 Shoulder ROM Limitations Shoulder ROM Limitations Soft Tissue Tightness,Pain Comments Pt has left shoulder pain at end range flexion and abduction Elbow/Forearm Range of Motion Elbow/Forearm ROM Limitations Comments Elbow AROM/PROM WNL bilaterally PT-OP-L Special Tests Start: 05/05/20 08:50 Freq: Status: Active Protocol: Document 05/05/20 08:51 AW (Rec: 05/05/20 13:04 AW [id number]) Special Tests Shoulder Special Tests painful arc Test Results negative bilaterally Drop Arm Rotator Cuff Test Results negative bilaterally Cunningham Nicolás Impingement Test Results normal R; vaguely positive L PT-OP-M Strength Start: 05/05/20 08:50 Freq: Status: Active Protocol: Document 05/05/20 08:51 AW (Rec: 05/05/20 13:04 AW [id number]) Cervical Spine Strength Cervical Spine Manual Muscle Testing Testing Position Sitting Flexion (C1-2) 5 Normal Extension 5 Normal Rotation Left 4+ Good+ Rotation Right 4+ Good+ Lateral Flexion Left (C3) 5 Normal Lateral Flexion Right (C3) 5 Normal Shoulder Strength Shoulder Manual Muscle Testing Right Flexion 5 Normal Extension 5 Normal Abduction (C5) 5 Normal External Rotation 5 Normal Left Flexion 4+ Good+ Abduction (C5) 4+ Good+ External Rotation 4+ Good+ Comments painful ER PT-OP-Q Treatments Start: 05/05/20 08:50 Freq: Status: Active Protocol: Document 05/26/20 16:13 AW (Rec: 05/27/20 16:30 AW [email or web address]) Gym Equipment Therapeutic Ball 4 Exercise Details pelvic tilt - anterior/ posterior Ball Size/Color 65 Body Position Sitting Comments for postural awareness; pt has difficulty isolating 2 Exercise Details thoracic rotation Ball Size/Color 55 Body Position Prone Comments supported thoracic rotation with cues for scapular stability 1 Exercise Details thoracic extension Ball Size/Color 45 Body Position Supine Therapeutic Exercises Standing Exercises ball wall circles Standing Exercise Name ball wall circles Side bilateral Equipment Used small ball Comments FF, scaption, abduction; cues for scap retraction wall posture Standing Exercise Name w/90/90 ER and with W slides Side bilateral Reps/Minutes 15 resisted extension Standing Exercise Name resisted extension Side bilateral Resistance level 2 Equipment Used TB Reps/Minutes 15 Comments improved scapular stability resisted rows Standing Exercise Name resisted rows Side bilateral Resistance level 1 Equipment Used TB Reps/Minutes 15 Comments improved scapular stability Manual Therapy Treatment Soft Tissue Mobilization STM Body Location B upper traps, lev scap, scalenes Mobilization Type Myofascial Release,Sustained Pressure,Trigger Point Release Intensity/Depth Moderate Body Position Hooklying Comments upper traps density reduced post STM with improved overhead ROM Joint Mobilizations GH Joint B Direction post, inf, distraction, lat glide Self-Care/Home Management Treatment Education Other Education desk set up complicated further by not being able to use a foot rest due to table type PT-OP-T Assessment and Plan Start: 05/05/20 08:50 Freq: Status: Active Protocol: Document 05/26/20 16:13 AW (Rec: 05/27/20 16:30 AW [email or web address]) Physical Therapy Assessment Goals Four Impairment pain with gardening Short Term Goal (STG) Pt will tolerate shoveling 10 minutes without increased pain STG Duration 06/02/20 Snf Goal (LTG) Pt will tolerate shoveling or raking 20 minutes without increased pain LTG Duration 06/30/20 Three Impairment strength Snf Goal (LTG) Pt will demonstrate 5/5 strength in left shoulder without increase in pain LTG Duration 06/30/20 Two Impairment functional impairment in daily activities Short Term Goal (STG) Pt will score 10 or less on QuickDash to demonstrate improved daily function STG Duration 06/02/20 Snf Goal (LTG) Pt will score 5 or less on QuickDash to demonstrate improvement in daily functional activities LTG Duration 06/30/20 One Impairment Pt has no appropriate HEP Short Term Goal (STG) Pt will be independent with HEP for support of therapy services provided in clinic STG Duration 06/02/20 Snf Goal (LTG) Pt will be independent with maintenance HEP LTG Duration 06/30/20 Assessment Summary Assessment Pt is more aware of scapular posture vs TL extension and was able to demonstrate with exercises needing less cueing. Pt reporting pain R>L at this time. Will continue to focus on postural awareness. Physical Therapy Plan Frequency and Duration Frequency of Treatment 1x/Week Duration of Treatment 8 Plan of Care Start Date 05/05/20 Plan of Care End Date 06/30/20 Therapeutic Interventions Therapeutic Interventions Home Exercise Program,Joint Mobilizations,Manual Therapy, Self-Care/Home Management,Soft Tissue Mobilization,Taping, Therapeutic Activities, Therapeutic Exercises Modalities Cold Pack/Ice Massage,Hot Packs Next Visit Focus/Plan Next Note Type Treatment Note Next Visit Plan progress thoracic extension mobility and strengthening for left shoulder
--- NOTE | 2020-06-02 16:20 | PT.OTN ---
Current Diagnoses Pain in left shoulder (06/02/20) Abnormal posture (06/02/20) Physical Therapy Treatment Note PT-OP-A Visit Information Start: 05/05/20 08:50 Freq: Status: Active Protocol: Document 06/02/20 16:01 AW (Rec: 06/02/20 16:20 AW [email or web address]) Out-Patient Physical Therapy Visit Information Visit Information Visit Type Treatment Note Visit Start Time 15:15 Visit Stop Time 16:00 Total Visit Minutes 45 Visit Number 5 Number of LEGAL ASSISTANT Visits 0 Evaluation Information Evaluation Date 05/05/20 PT-OP-B Current Condition Start: 05/05/20 08:50 Freq: Status: Active Protocol: Document 05/05/20 08:51 AW (Rec: 05/05/20 08:53 AW [id number]) Current Condition History of Current Condition Onset Date 04/11/20 Current Complaints left shoulder pain History of Current Condition Piedad was doing heavy gardening with a lot of rock shoveling and gardening. She had onset of pain ~04/11/20. She moved 5 cubic yards of rocks in a few days and noticed pain beginning on Sunday. When it didn't improve , she went to urgent care on where she received treatment with toradol. She was also provided with a predinisone burst with taper which she finished. Treatment was effective, but she would like to regain full pain-free ROM. She attempted to do some shoveling a few days ago, but noticed pain after a few minutes so she stopped. She is using Tylenol prn and finds it effective for managing her pain. Prior Treatments and Tests Toradol 30 mg at urgent care . Ice, tylenol, ibuprofen Pt has had prior PT for knee problems including ACL reconstruction x 2. Future Testing and Treatments Planned None identified. Treatment Goals Patient/Caregiver Goals Pt has more gardening projects she would like to complete but is willing to modify her activity at this time. Her shoulder bothers her when biking, running, and hiking. She hopes to get back to those activities without pain. 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 Baseline Function- Recreation/Hobbies Pt stays active with weightlifting, yoga, hiking, biking, gardening. Current Functional Impairments (Reported) Functional Limitations- ADL's Difficulty donning a shirt at first but symtoms have improved. Functional Limitations- Work/School Pt finds her left shoulder aching during prolonged periods of time at the computer. Functional Limitations- Recreation/ Pain with gardening, biking, Hobbies hiking, running, and yoga Personal Factors Other Personal Factors That May Effect (+) positive prior experience Therapy/Recovery with PT (+) pt is generally active and accustomed to exercise (-) long hours at a computer required for work PT-OP-C Subjective Start: 05/05/20 08:50 Freq: Status: Active Protocol: Document 06/02/20 16:01 AW (Rec: 06/02/20 16:20 AW [email or web address]) OP-PT Subjective Patient Comments Patient Comments Pt has not spent significant time in gardening. She misses yoga practice. PT-OP-F Manual Assessment Start: 05/05/20 08:50 Freq: Status: Active Protocol: Document 05/05/20 08:51 AW (Rec: 05/05/20 13:04 AW [id number]) Manual Assessments Soft Tissue Assessment Soft Tissue Mobility Assessment Pt has increased density of bilateral upper trapezius. Joint Mobility Assessment Joint Mobility Assessment Left GH posterior glides painful but without restriction. Inferior glides normal bilaterally without pain. Decreased A/P glides upper thoracic spine. PT-OP-H Neuro Start: 05/05/20 08:50 Freq: Status: Active Protocol: Document 05/05/20 08:51 AW (Rec: 05/05/20 13:04 AW [id number]) Sensation Evaluation Gross Sensation Gross Sensation WNL PT-OP-J Posture/Palpation/Skin Start: 05/05/20 08:50 Freq: Status: Active Protocol: Document 05/05/20 08:51 AW (Rec: 05/05/20 13:04 AW [id number]) Posture Evaluation Position Sitting Evaluation View Lateral Head/C-Spine Posture Forward Head Shoulder Posture (L) Rounded,(R) Rounded,(L) Forward,(R) Forward Scapula Posture (L) Protracted,(R) Protracted Arm Posture (L) Internally Rotated,(R) Internally Rotated PT-OP-K Range of Motion Start: 05/05/20 08:50 Freq: Status: Active Protocol: Document 05/05/20 08:51 AW (Rec: 05/05/20 13:04 AW [id number]) Cervical Spine Range of Motion Cervical Spine Active Degrees Testing Position Sitting Flexion 60 Extension 75 Rotation Left 47 Rotation Right 40 Lateral Flexion Left 40 Lateral Flexion Right 40 ROM Limitations Soft Tissue Tightness Shoulder Goniometric Range of Motion Shoulder Left Active Shoulder ROM WFL Yes Testing Position Sitting Flexion 180 Abduction 180 External Rotation at 90 degrees 80 Abduction Internal Rotation Behind Back (text) T8 Right Active Shoulder ROM WFL Yes Flexion 183 Abduction 182 External Rotation at 90 degrees 85 Abduction Internal Rotation Behind Back (text) T3 Shoulder ROM Limitations Shoulder ROM Limitations Soft Tissue Tightness,Pain Comments Pt has left shoulder pain at end range flexion and abduction Elbow/Forearm Range of Motion Elbow/Forearm ROM Limitations Comments Elbow AROM/PROM WNL bilaterally PT-OP-L Special Tests Start: 05/05/20 08:50 Freq: Status: Active Protocol: Document 05/05/20 08:51 AW (Rec: 05/05/20 13:04 AW [id number]) Special Tests Shoulder Special Tests painful arc Test Results negative bilaterally Drop Arm Rotator Cuff Test Results negative bilaterally Cunningham Nicolás Impingement Test Results normal R; vaguely positive L PT-OP-M Strength Start: 05/05/20 08:50 Freq: Status: Active Protocol: Document 05/05/20 08:51 AW (Rec: 05/05/20 13:04 AW [id number]) Cervical Spine Strength Cervical Spine Manual Muscle Testing Testing Position Sitting Flexion (C1-2) 5 Normal Extension 5 Normal Rotation Left 4+ Good+ Rotation Right 4+ Good+ Lateral Flexion Left (C3) 5 Normal Lateral Flexion Right (C3) 5 Normal Shoulder Strength Shoulder Manual Muscle Testing Right Flexion 5 Normal Extension 5 Normal Abduction (C5) 5 Normal External Rotation 5 Normal Left Flexion 4+ Good+ Abduction (C5) 4+ Good+ External Rotation 4+ Good+ Comments painful ER PT-OP-Q Treatments Start: 05/05/20 08:50 Freq: Status: Active Protocol: Document 06/02/20 16:01 AW (Rec: 06/02/20 16:20 AW [email or web address]) Cardio Equipment Upper Body Ergometer (UBE) Duration (Minutes) 5 RPM 75 Seat Position 14 Height 3 Other fwd/bwd Therapeutic Exercises Supine Exercises rhythmic stabilization Supine Exercise Name rhythmic stabilization Side right Resistance manual Reps/Minutes 2 min Comments with shoulder in 90 deg flexion, pt resisting manually applied force Prone Exercises W's Prone Exercise Name W's Side bilateral Reps/Minutes 10 reps Comments not tolerated in 90 deg abd; better in 45 deg abd GH extension Prone Exercise Name GH extension Side bilateral Reps/Minutes 12 reps x 2 Comments palms up; cued scap retraction Sidelying Exercises scapular retraction/depression Sidelying Exercise Name scapular retraction/depression Side bilateral Resistance manual Reps/Minutes 15 reps each side Comments cued controlled movement Standing Exercises angulo walk Standing Exercise Name angulo walk Side bilateral Resistance 3# Equipment Used db Reps/Minutes 2 min x 2 Comments for GH traction and RC activation modified plantigrade push up plus Standing Exercise Name modified plantigrade push up plus Equipment Used treatment table Reps/Minutes 10 reps Comments cued retraction/protraction Manual Therapy Treatment Joint Mobilizations AC Joint gapping Comments with active and passive GH movement GH Joint B Direction post, inf, distraction, lat glide Self-Care/Home Management Treatment Education Patient Education Body Mechanics,Joint Protection,Posture Other Education pt has ordered a folding table to use as a desk for improved ergonomics PT-OP-T Assessment and Plan Start: 05/05/20 08:50 Freq: Status: Active Protocol: Document 06/02/20 16:01 AW (Rec: 06/02/20 16:20 AW [email or web address]) Physical Therapy Assessment Goals Four Impairment pain with gardening Short Term Goal (STG) Pt will tolerate shoveling 10 minutes without increased pain STG Duration 06/02/20 Medical Office Technologist Goal (LTG) Pt will tolerate shoveling or raking 20 minutes without increased pain LTG Duration 06/30/20 Three Impairment strength Fci Goal (LTG) Pt will demonstrate 5/5 strength in left shoulder without increase in pain LTG Duration 06/30/20 Two Impairment functional impairment in daily activities Short Term Goal (STG) Pt will score 10 or less on QuickDash to demonstrate improved daily function STG Duration 06/02/20 Medical Office Technologist Goal (LTG) Pt will score 5 or less on QuickDash to demonstrate improvement in daily functional activities LTG Duration 06/30/20 One Impairment Pt has no appropriate HEP Short Term Goal (STG) Pt will be independent with HEP for support of therapy services provided in clinic STG Duration 06/02/20 Fci Goal (LTG) Pt will be independent with maintenance HEP LTG Duration 06/30/20 Assessment Summary Assessment Pt is planning to undertake some gardening tasks this week . Advised pt to try 10 minutes at a time up to two times per day at first to gauge response to activity. She is also planning return to yoga but is willing and prepared to modify as needed to avoid painful ROM. Pt continues to report less left sided pain than right. Physical Therapy Plan Frequency and Duration Frequency of Treatment 1x/Week Duration of Treatment 8 Plan of Care Start Date 05/05/20 Plan of Care End Date 06/30/20 Therapeutic Interventions Therapeutic Interventions Home Exercise Program,Joint Mobilizations,Manual Therapy, Self-Care/Home Management,Soft Tissue Mobilization,Taping, Therapeutic Activities, Therapeutic Exercises Modalities Cold Pack/Ice Massage,Hot Packs Next Visit Focus/Plan Next Note Type Treatment Note Next Visit Plan progress postural awareness and periscapular strength, GH strength bilaterally
--- NOTE | 2020-06-09 17:35 | PT.OTN ---
Current Diagnoses Pain in left shoulder (06/09/20) Abnormal posture (06/09/20) Physical Therapy Treatment Note PT-OP-A Visit Information Start: 05/05/20 08:50 Freq: Status: Active Protocol: Document 06/09/20 17:19 AW (Rec: 06/10/20 17:35 AW [email or web address]) Out-Patient Physical Therapy Visit Information Visit Information Visit Type Treatment Note Visit Start Time 15:15 Visit Stop Time 16:00 Total Visit Minutes 45 Visit Number 6 Number of ELECTRICAL ENGINEERING PROFESSOR Visits 0 Evaluation Information Evaluation Date 05/05/20 PT-OP-B Current Condition Start: 05/05/20 08:50 Freq: Status: Active Protocol: Document 05/05/20 08:51 AW (Rec: 05/05/20 08:53 AW [id number]) Current Condition History of Current Condition Onset Date 04/11/20 Current Complaints left shoulder pain History of Current Condition Piedad was doing heavy gardening with a lot of rock shoveling and gardening. She had onset of pain ~04/11/20. She moved 5 cubic yards of rocks in a few days and noticed pain beginning on Sunday. When it didn't improve , she went to urgent care on where she received treatment with toradol. She was also provided with a predinisone burst with taper which she finished. Treatment was effective, but she would like to regain full pain-free ROM. She attempted to do some shoveling a few days ago, but noticed pain after a few minutes so she stopped. She is using Tylenol prn and finds it effective for managing her pain. Prior Treatments and Tests Toradol 30 mg at urgent care . Ice, tylenol, ibuprofen Pt has had prior PT for knee problems including ACL reconstruction x 2. Future Testing and Treatments Planned None identified. Treatment Goals Patient/Caregiver Goals Pt has more gardening projects she would like to complete but is willing to modify her activity at this time. Her shoulder bothers her when biking, running, and hiking. She hopes to get back to those activities without pain. 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 Baseline Function- Recreation/Hobbies Pt stays active with weightlifting, yoga, hiking, biking, gardening. Current Functional Impairments (Reported) Functional Limitations- ADL's Difficulty donning a shirt at first but symtoms have improved. Functional Limitations- Work/School Pt finds her left shoulder aching during prolonged periods of time at the computer. Functional Limitations- Recreation/ Pain with gardening, biking, Hobbies hiking, running, and yoga Personal Factors Other Personal Factors That May Effect (+) positive prior experience Therapy/Recovery with PT (+) pt is generally active and accustomed to exercise (-) long hours at a computer required for work PT-OP-C Subjective Start: 05/05/20 08:50 Freq: Status: Active Protocol: Document 06/09/20 17:19 AW (Rec: 06/10/20 17:35 AW [email or web address]) OP-PT Subjective Patient Comments Patient Comments I went to yoga and even did a short handstand without pain afterward. I did some gardening last weekend, keeping it to 10 minutes at a time and did not have increased pain. Patient Reported Progress Same PT-OP-F Manual Assessment Start: 05/05/20 08:50 Freq: Status: Active Protocol: Document 05/05/20 08:51 AW (Rec: 05/05/20 13:04 AW [id number]) Manual Assessments Soft Tissue Assessment Soft Tissue Mobility Assessment Pt has increased density of bilateral upper trapezius. Joint Mobility Assessment Joint Mobility Assessment Left GH posterior glides painful but without restriction. Inferior glides normal bilaterally without pain. Decreased A/P glides upper thoracic spine. PT-OP-H Neuro Start: 05/05/20 08:50 Freq: Status: Active Protocol: Document 05/05/20 08:51 AW (Rec: 05/05/20 13:04 AW [id number]) Sensation Evaluation Gross Sensation Gross Sensation WNL PT-OP-J Posture/Palpation/Skin Start: 05/05/20 08:50 Freq: Status: Active Protocol: Document 05/05/20 08:51 AW (Rec: 05/05/20 13:04 AW [id number]) Posture Evaluation Position Sitting Evaluation View Lateral Head/C-Spine Posture Forward Head Shoulder Posture (L) Rounded,(R) Rounded,(L) Forward,(R) Forward Scapula Posture (L) Protracted,(R) Protracted Arm Posture (L) Internally Rotated,(R) Internally Rotated PT-OP-K Range of Motion Start: 05/05/20 08:50 Freq: Status: Active Protocol: Document 05/05/20 08:51 AW (Rec: 05/05/20 13:04 AW [id number]) Cervical Spine Range of Motion Cervical Spine Active Degrees Testing Position Sitting Flexion 60 Extension 75 Rotation Left 47 Rotation Right 40 Lateral Flexion Left 40 Lateral Flexion Right 40 ROM Limitations Soft Tissue Tightness Shoulder Goniometric Range of Motion Shoulder Left Active Shoulder ROM WFL Yes Testing Position Sitting Flexion 180 Abduction 180 External Rotation at 90 degrees 80 Abduction Internal Rotation Behind Back (text) T8 Right Active Shoulder ROM WFL Yes Flexion 183 Abduction 182 External Rotation at 90 degrees 85 Abduction Internal Rotation Behind Back (text) T3 Shoulder ROM Limitations Shoulder ROM Limitations Soft Tissue Tightness,Pain Comments Pt has left shoulder pain at end range flexion and abduction Elbow/Forearm Range of Motion Elbow/Forearm ROM Limitations Comments Elbow AROM/PROM WNL bilaterally PT-OP-L Special Tests Start: 05/05/20 08:50 Freq: Status: Active Protocol: Document 05/05/20 08:51 AW (Rec: 05/05/20 13:04 AW [id number]) Special Tests Shoulder Special Tests painful arc Test Results negative bilaterally Drop Arm Rotator Cuff Test Results negative bilaterally Cunningham Nicolás Impingement Test Results normal R; vaguely positive L PT-OP-M Strength Start: 05/05/20 08:50 Freq: Status: Active Protocol: Document 05/05/20 08:51 AW (Rec: 05/05/20 13:04 AW [id number]) Cervical Spine Strength Cervical Spine Manual Muscle Testing Testing Position Sitting Flexion (C1-2) 5 Normal Extension 5 Normal Rotation Left 4+ Good+ Rotation Right 4+ Good+ Lateral Flexion Left (C3) 5 Normal Lateral Flexion Right (C3) 5 Normal Shoulder Strength Shoulder Manual Muscle Testing Right Flexion 5 Normal Extension 5 Normal Abduction (C5) 5 Normal External Rotation 5 Normal Left Flexion 4+ Good+ Abduction (C5) 4+ Good+ External Rotation 4+ Good+ Comments painful ER PT-OP-Q Treatments Start: 05/05/20 08:50 Freq: Status: Active Protocol: Document 06/09/20 17:19 AW (Rec: 06/10/20 17:35 AW [email or web address]) Cardio Equipment Upper Body Ergometer (UBE) Duration (Minutes) 5 RPM 75 Seat Position 14 Height 3 Other fwd/bwd Gym Equipment Therapeutic Ball prone walkout + Exercise Details prone walkout + Ball Size/Color 65 cm Body Position Prone Reps/Duration x 8 Comments walkout to hips + half pushup; demo and VC for chin retraction to maintain neutral spine prone Y, T, I Exercise Details prone Y, T, I Ball Size/Color 65 cm Body Position Prone Reps/Duration 10 sec hold x 3 each direction Comments cues for scapular retraction Therapeutic Exercises Supine Exercises biceps long head stretch Supine Exercise Name biceps long head stretch Side bilateral Reps/Minutes 60 sec hold x 2 Comments with active pronation/ supination Prone Exercises thread the needle Prone Exercise Name thread the needle Side bilateral Comments quadruped; painful on RUE - d/ c'd GH extension Prone Exercise Name GH extension Side bilateral Resistance 1# Equipment Used db Reps/Minutes 12 reps x 2 Comments palms up; cued scap retraction , small controlled movement Sidelying Exercises GH ER Sidelying Exercise Name GH ER Side bilateral Resistance 3# Equipment Used db Standing Exercises wall slides - serratus anterior activation Standing Exercise Name wall slides - serratus anterior activation Side bilateral Reps/Minutes x12 Comments facing wall maintaining forearm contact with wall Manual Therapy Treatment Joint Mobilizations AC Joint gapping Comments with active and passive GH movement GH Joint B Direction post, inf, distraction, lat glide Self-Care/Home Management Treatment Education Patient Education Body Mechanics,Joint Protection,Posture PT-OP-T Assessment and Plan Start: 05/05/20 08:50 Freq: Status: Active Protocol: Document 06/09/20 17:19 AW (Rec: 06/10/20 17:35 AW [email or web address]) Physical Therapy Assessment Goals Four Impairment pain with gardening Short Term Goal (STG) Pt will tolerate shoveling 10 minutes without increased pain MET 06/09/20 STG Duration 06/02/20 Floor Covering Printer Assistant Goal (LTG) Pt will tolerate shoveling or raking 20 minutes without increased pain LTG Duration 06/30/20 Three Impairment strength Floor Covering Printer Assistant Goal (LTG) Pt will demonstrate 5/5 strength in left shoulder without increase in pain LTG Duration 06/30/20 Two Impairment functional impairment in daily activities Short Term Goal (STG) Pt will score 10 or less on QuickDash to demonstrate improved daily function STG Duration 06/02/20 Floor Covering Printer Assistant Goal (LTG) Pt will score 5 or less on QuickDash to demonstrate improvement in daily functional activities LTG Duration 06/30/20 One Impairment Pt has no appropriate HEP Short Term Goal (STG) Pt will be independent with HEP for support of therapy services provided in clinic MET 06/09/20 STG Duration 06/02/20 Shelter Goal (LTG) Pt will be independent with maintenance HEP LTG Duration 06/30/20 Assessment Summary Assessment Pt complains of a snapping sensation with rotation and overhead movement with right shoulder more affected than left. Biceps length is limited in same pattern. Added biceps stretch to HEP. Pt reports improved tolerance to yoga and gardening activities but requires further PT to regain full function. Physical Therapy Plan Frequency and Duration Frequency of Treatment 1x/Week Duration of Treatment 8 Plan of Care Start Date 05/05/20 Plan of Care End Date 06/30/20 Therapeutic Interventions Therapeutic Interventions Home Exercise Program,Joint Mobilizations,Manual Therapy, Self-Care/Home Management,Soft Tissue Mobilization,Taping, Therapeutic Activities, Therapeutic Exercises Modalities Cold Pack/Ice Massage,Hot Packs Next Visit Focus/Plan Next Note Type Treatment Note Next Visit Plan progress postural awareness and periscapular strength, GH strength bilaterally
--- NOTE | 2020-06-16 09:26 | PT.OTN ---
Current Diagnoses Pain in left shoulder (06/16/20) Abnormal posture (06/16/20) Physical Therapy Treatment Note PT-OP-A Visit Information Start: 05/05/20 08:50 Freq: Status: Active Protocol: Document 06/16/20 08:12 SAK (Rec: 06/16/20 09:02 SAK [id number]) Out-Patient Physical Therapy Visit Information Visit Information Visit Type Treatment Note Visit Start Time 08:15 Visit Stop Time 09:00 Total Visit Minutes 45 Visit Number 7 Number of CONVEYOR SYSTEM DISPATCHER Visits 0 Evaluation Information Evaluation Date 05/05/20 PT-OP-B Current Condition Start: 05/05/20 08:50 Freq: Status: Active Protocol: Document 05/05/20 08:51 AW (Rec: 05/05/20 08:53 AW [id number]) Current Condition History of Current Condition Onset Date 04/11/20 Current Complaints left shoulder pain History of Current Condition Piedad was doing heavy gardening with a lot of rock shoveling and gardening. She had onset of pain ~04/11/20. She moved 5 cubic yards of rocks in a few days and noticed pain beginning on Sunday. When it didn't improve , she went to urgent care on where she received treatment with toradol. She was also provided with a predinisone burst with taper which she finished. Treatment was effective, but she would like to regain full pain-free ROM. She attempted to do some shoveling a few days ago, but noticed pain after a few minutes so she stopped. She is using Tylenol prn and finds it effective for managing her pain. Prior Treatments and Tests Toradol 30 mg at urgent care . Ice, tylenol, ibuprofen Pt has had prior PT for knee problems including ACL reconstruction x 2. Future Testing and Treatments Planned None identified. Treatment Goals Patient/Caregiver Goals Pt has more gardening projects she would like to complete but is willing to modify her activity at this time. Her shoulder bothers her when biking, running, and hiking. She hopes to get back to those activities without pain. 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 Baseline Function- Recreation/Hobbies Pt stays active with weightlifting, yoga, hiking, biking, gardening. Current Functional Impairments (Reported) Functional Limitations- ADL's Difficulty donning a shirt at first but symtoms have improved. Functional Limitations- Work/School Pt finds her left shoulder aching during prolonged periods of time at the computer. Functional Limitations- Recreation/ Pain with gardening, biking, Hobbies hiking, running, and yoga Personal Factors Other Personal Factors That May Effect (+) positive prior experience Therapy/Recovery with PT (+) pt is generally active and accustomed to exercise (-) long hours at a computer required for work PT-OP-C Subjective Start: 05/05/20 08:50 Freq: Status: Active Protocol: Document 06/16/20 08:12 SAK (Rec: 06/16/20 09:02 SAK [id number]) OP-PT Subjective Patient Comments Patient Comments Has to take more breaks when doing yardwork, hard time maintaining good posture throughout the day. Has changed work set-up. Still can't lift arms overhead without widening them out to side, mostly feels pinching on top and back of shoulder at end-range. PT-OP-F Manual Assessment Start: 05/05/20 08:50 Freq: Status: Active Protocol: Document 05/05/20 08:51 AW (Rec: 05/05/20 13:04 AW [id number]) Manual Assessments Soft Tissue Assessment Soft Tissue Mobility Assessment Pt has increased density of bilateral upper trapezius. Joint Mobility Assessment Joint Mobility Assessment Left GH posterior glides painful but without restriction. Inferior glides normal bilaterally without pain. Decreased A/P glides upper thoracic spine. PT-OP-H Neuro Start: 05/05/20 08:50 Freq: Status: Active Protocol: Document 05/05/20 08:51 AW (Rec: 05/05/20 13:04 AW [id number]) Sensation Evaluation Gross Sensation Gross Sensation WNL PT-OP-J Posture/Palpation/Skin Start: 05/05/20 08:50 Freq: Status: Active Protocol: Document 05/05/20 08:51 AW (Rec: 05/05/20 13:04 AW [id number]) Posture Evaluation Position Sitting Evaluation View Lateral Head/C-Spine Posture Forward Head Shoulder Posture (L) Rounded,(R) Rounded,(L) Forward,(R) Forward Scapula Posture (L) Protracted,(R) Protracted Arm Posture (L) Internally Rotated,(R) Internally Rotated PT-OP-K Range of Motion Start: 05/05/20 08:50 Freq: Status: Active Protocol: Document 05/05/20 08:51 AW (Rec: 05/05/20 13:04 AW [id number]) Cervical Spine Range of Motion Cervical Spine Active Degrees Testing Position Sitting Flexion 60 Extension 75 Rotation Left 47 Rotation Right 40 Lateral Flexion Left 40 Lateral Flexion Right 40 ROM Limitations Soft Tissue Tightness Shoulder Goniometric Range of Motion Shoulder Left Active Shoulder ROM WFL Yes Testing Position Sitting Flexion 180 Abduction 180 External Rotation at 90 degrees 80 Abduction Internal Rotation Behind Back (text) T8 Right Active Shoulder ROM WFL Yes Flexion 183 Abduction 182 External Rotation at 90 degrees 85 Abduction Internal Rotation Behind Back (text) T3 Shoulder ROM Limitations Shoulder ROM Limitations Soft Tissue Tightness,Pain Comments Pt has left shoulder pain at end range flexion and abduction Elbow/Forearm Range of Motion Elbow/Forearm ROM Limitations Comments Elbow AROM/PROM WNL bilaterally PT-OP-L Special Tests Start: 05/05/20 08:50 Freq: Status: Active Protocol: Document 05/05/20 08:51 AW (Rec: 05/05/20 13:04 AW [id number]) Special Tests Shoulder Special Tests painful arc Test Results negative bilaterally Drop Arm Rotator Cuff Test Results negative bilaterally Cunningham Nicolás Impingement Test Results normal R; vaguely positive L PT-OP-M Strength Start: 05/05/20 08:50 Freq: Status: Active Protocol: Document 05/05/20 08:51 AW (Rec: 05/05/20 13:04 AW [id number]) Cervical Spine Strength Cervical Spine Manual Muscle Testing Testing Position Sitting Flexion (C1-2) 5 Normal Extension 5 Normal Rotation Left 4+ Good+ Rotation Right 4+ Good+ Lateral Flexion Left (C3) 5 Normal Lateral Flexion Right (C3) 5 Normal Shoulder Strength Shoulder Manual Muscle Testing Right Flexion 5 Normal Extension 5 Normal Abduction (C5) 5 Normal External Rotation 5 Normal Left Flexion 4+ Good+ Abduction (C5) 4+ Good+ External Rotation 4+ Good+ Comments painful ER PT-OP-Q Treatments Start: 08/05/20 08:50 Freq: Status: Active Protocol: Document 06/16/20 08:12 [facility] (Rec: 06/16/20 09:02 [facility] [id number]) Cardio Equipment Upper Body Ergometer (UBE) Duration (Minutes) 6 RPM 75 Seat Position 14 Height 3 Other fwd/bwd Gym Equipment Therapeutic Ball prone walkout + Exercise Details prone walkout + Ball Size/Color 65 cm Body Position Prone Reps/Duration x 10 Comments walkout to hips + half pushup; demo and VC for chin retraction to maintain neutral spine prone Y, T, I Exercise Details prone Y, T, I Ball Size/Color 65 cm Body Position Prone Reps/Duration 10 sec hold x 3 each direction Comments cues for scapular retraction Therapeutic Exercises Prone Exercises GH extension Prone Exercise Name GH extension Side bilateral Resistance 1# Equipment Used db Reps/Minutes 12 reps x 2 Comments palms up; cued scap retraction , small controlled movement Sidelying Exercises reach and roll Side bilateral Reps/Minutes 5x ea Comments verbal and tactile cues for segmental movement, end-range stretch breath Sitting Exercises pec stretch at work Comments verbal instruction trunk rotation Comments verbal instruction seated yoga twist during work day [place] stretch Reps/Minutes 2x30 Comments hand holding chair or under buttock Manual Therapy Treatment Joint Mobilizations first rib Direction depression Grade III Body Position Supine Comments 3 min Self-Care/Home Management Treatment Education Patient Education Body Mechanics,Joint Protection,Posture Other Education frequent change in position, stretching throughout the day PT-OP-T Assessment and Plan Start: 05/05/20 08:50 Freq: Status: Active Protocol: Document 06/16/20 08:12 [facility] (Rec: 06/16/20 09:02 [facility] [id number]) Physical Therapy Assessment Goals Four Impairment pain with gardening Short Term Goal (STG) Pt will tolerate shoveling 10 minutes without increased pain MET 06/09/20 STG Duration 06/02/20 Fdc Goal (LTG) Pt will tolerate shoveling or raking 20 minutes without increased pain LTG Duration 06/30/20 Three Impairment strength Fdc Goal (LTG) Pt will demonstrate 5/5 strength in left shoulder without increase in pain LTG Duration 06/30/20 Two Impairment functional impairment in daily activities Short Term Goal (STG) Pt will score 10 or less on QuickDash to demonstrate improved daily function STG Duration 06/02/[address] Goal (LTG) Pt will score 5 or less on QuickDash to demonstrate improvement in daily functional activities LTG Duration 06/30/20 One Impairment Pt has no appropriate HEP Short Term Goal (STG) Pt will be independent with HEP for support of therapy services provided in clinic MET 06/09/20 STG Duration 06/02/20 Fdc Goal (LTG) Pt will be independent with maintenance HEP LTG Duration 06/30/20 Assessment Summary Assessment First rib right noted to be elevated, decrease pain with mobilization. Mid thoracic stiffness decreased with reach and roll and use of foam roller on thoracic spine. Patient demonstrated good understanding of cervical stretching, seated yoga twist , frequent change in position and stretching throughout day . Tried to progress to 2# with shoulder extension but patient unable to maintain form. Physical Therapy Plan Frequency and Duration Frequency of Treatment 1x/Week Duration of Treatment 8 Plan of Care Start Date 05/05/20 Plan of Care End Date 06/30/20 Therapeutic Interventions Therapeutic Interventions Home Exercise Program,Joint Mobilizations,Manual Therapy, Self-Care/Home Management,Soft Tissue Mobilization,Taping, Therapeutic Activities, Therapeutic Exercises Modalities Cold Pack/Ice Massage,Hot Packs Next Visit Focus/Plan Next Note Type Treatment Note Next Visit Plan progress postural awareness and periscapular strength, GH strength bilaterally. Work on posture and alignment during functional tasks of gardening, biking.
--- NOTE | 2020-06-23 12:24 | PT.OTN ---
Current Diagnoses Pain in left shoulder (06/23/20) Abnormal posture (06/23/20) Physical Therapy Treatment Note PT-OP-A Visit Information Start: 05/05/20 08:50 Freq: Status: Active Protocol: Document 06/23/20 12:01 AW (Rec: 06/23/20 12:24 AW [email or web address]) Out-Patient Physical Therapy Visit Information Visit Information Visit Type Treatment Note Visit Start Time 11:15 Visit Stop Time 12:00 Total Visit Minutes 45 Visit Number 8 Evaluation Information Evaluation Date 05/05/20 PT-OP-B Current Condition Start: 05/05/20 08:50 Freq: Status: Active Protocol: Document 05/05/20 08:51 AW (Rec: 05/05/20 08:53 AW [id number]) Current Condition History of Current Condition Onset Date 04/11/20 Current Complaints left shoulder pain History of Current Condition Piedad was doing heavy gardening with a lot of rock shoveling and gardening. She had onset of pain ~04/11/20. She moved 5 cubic yards of rocks in a few days and noticed pain beginning on Sunday. When it didn't improve , she went to urgent care on where she received treatment with toradol. She was also provided with a predinisone burst with taper which she finished. Treatment was effective, but she would like to regain full pain-free ROM. She attempted to do some shoveling a few days ago, but noticed pain after a few minutes so she stopped. She is using Tylenol prn and finds it effective for managing her pain. Prior Treatments and Tests Toradol 30 mg at urgent care . Ice, tylenol, ibuprofen Pt has had prior PT for knee problems including ACL reconstruction x 2. Future Testing and Treatments Planned None identified. Treatment Goals Patient/Caregiver Goals Pt has more gardening projects she would like to complete but is willing to modify her activity at this time. Her shoulder bothers her when biking, running, and hiking. She hopes to get back to those activities without pain. 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 Baseline Function- Recreation/Hobbies Pt stays active with weightlifting, yoga, hiking, biking, gardening. Current Functional Impairments (Reported) Functional Limitations- ADL's Difficulty donning a shirt at first but symtoms have improved. Functional Limitations- Work/School Pt finds her left shoulder aching during prolonged periods of time at the computer. Functional Limitations- Recreation/ Pain with gardening, biking, Hobbies hiking, running, and yoga Personal Factors Other Personal Factors That May Effect (+) positive prior experience Therapy/Recovery with PT (+) pt is generally active and accustomed to exercise (-) long hours at a computer required for work PT-OP-C Subjective Start: 05/05/20 08:50 Freq: Status: Active Protocol: Document 06/23/20 12:01 AW (Rec: 06/23/20 12:24 AW [email or web address]) OP-PT Subjective Patient Comments Patient Comments Right shoulder is still worse than left. I have pain in the top and back of my shoulder when I reach across my body. PT-OP-F Manual Assessment Start: 05/05/20 08:50 Freq: Status: Active Protocol: Document 05/05/20 08:51 AW (Rec: 05/05/20 13:04 AW [id number]) Manual Assessments Soft Tissue Assessment Soft Tissue Mobility Assessment Pt has increased density of bilateral upper trapezius. Joint Mobility Assessment Joint Mobility Assessment Left GH posterior glides painful but without restriction. Inferior glides normal bilaterally without pain. Decreased A/P glides upper thoracic spine. PT-OP-H Neuro Start: 05/05/20 08:50 Freq: Status: Active Protocol: Document 05/05/20 08:51 AW (Rec: 05/05/20 13:04 AW [id number]) Sensation Evaluation Gross Sensation Gross Sensation WNL PT-OP-J Posture/Palpation/Skin Start: 05/05/20 08:50 Freq: Status: Active Protocol: Document 05/05/20 08:51 AW (Rec: 05/05/20 13:04 AW [id number]) Posture Evaluation Position Sitting Evaluation View Lateral Head/C-Spine Posture Forward Head Shoulder Posture (L) Rounded,(R) Rounded,(L) Forward,(R) Forward Scapula Posture (L) Protracted,(R) Protracted Arm Posture (L) Internally Rotated,(R) Internally Rotated PT-OP-K Range of Motion Start: 05/05/20 08:50 Freq: Status: Active Protocol: Document 05/05/20 08:51 AW (Rec: 05/05/20 13:04 AW [id number]) Cervical Spine Range of Motion Cervical Spine Active Degrees Testing Position Sitting Flexion 60 Extension 75 Rotation Left 47 Rotation Right 40 Lateral Flexion Left 40 Lateral Flexion Right 40 ROM Limitations Soft Tissue Tightness Shoulder Goniometric Range of Motion Shoulder Left Active Shoulder ROM WFL Yes Testing Position Sitting Flexion 180 Abduction 180 External Rotation at 90 degrees 80 Abduction Internal Rotation Behind Back (text) T8 Right Active Shoulder ROM WFL Yes Flexion 183 Abduction 182 External Rotation at 90 degrees 85 Abduction Internal Rotation Behind Back (text) T3 Shoulder ROM Limitations Shoulder ROM Limitations Soft Tissue Tightness,Pain Comments Pt has left shoulder pain at end range flexion and abduction Elbow/Forearm Range of Motion Elbow/Forearm ROM Limitations Comments Elbow AROM/PROM WNL bilaterally PT-OP-L Special Tests Start: 05/05/20 08:50 Freq: Status: Active Protocol: Document 05/05/20 08:51 AW (Rec: 05/05/20 13:04 AW [id number]) Special Tests Shoulder Special Tests painful arc Test Results negative bilaterally Drop Arm Rotator Cuff Test Results negative bilaterally Cunningham Nicolás Impingement Test Results normal R; vaguely positive L PT-OP-M Strength Start: 05/05/20 08:50 Freq: Status: Active Protocol: Document 05/05/20 08:51 AW (Rec: 05/05/20 13:04 AW [id number]) Cervical Spine Strength Cervical Spine Manual Muscle Testing Testing Position Sitting Flexion (C1-2) 5 Normal Extension 5 Normal Rotation Left 4+ Good+ Rotation Right 4+ Good+ Lateral Flexion Left (C3) 5 Normal Lateral Flexion Right (C3) 5 Normal Shoulder Strength Shoulder Manual Muscle Testing Right Flexion 5 Normal Extension 5 Normal Abduction (C5) 5 Normal External Rotation 5 Normal Left Flexion 4+ Good+ Abduction (C5) 4+ Good+ External Rotation 4+ Good+ Comments painful ER PT-OP-Q Treatments Start: 05/05/20 08:50 Freq: Status: Active Protocol: Document 06/23/20 12:01 AW (Rec: 06/23/20 12:24 AW [email or web address]) Gym Equipment Cable Column (Body Solid) scapular depression Details scapular depression, straight arms Resistance 50# Reps/Time 10 reps x 2 Therapeutic Exercises Supine Exercises lower trap push Supine Exercise Name lower trap push Side bilateral Reps/Minutes 5 sec hold x 10 Comments hooklying; stretch hands twd feet and press palms down Sitting Exercises isometric elbow flexion Sitting Exercise Name isometric elbow flexion Side right Resistance manual Reps/Minutes 5 sec hold x 10 UT stretch Reps/Minutes 2x30 Comments hand holding chair or under buttock Standing Exercises wall slides - serratus anterior activation Standing Exercise Name wall slides - diagonal with liftoff Side bilateral Reps/Minutes 10 x 2 Comments cues to control T-L extension Manual Therapy Treatment Soft Tissue Mobilization STM Body Location B upper traps, lev scap, scalenes Mobilization Type Myofascial Release,Sustained Pressure,Trigger Point Release Intensity/Depth Moderate Body Position Hooklying Comments upper traps density reduced post STM with improved overhead ROM and cervical rotation Joint Mobilizations first rib Direction depression Grade III Body Position Supine Comments 3 min Self-Care/Home Management Treatment Education Patient Education Body Mechanics,Joint Protection,Posture Other Education frequent change in position, stretching throughout the day with reminders on phone to interrupt work schedule. PT-OP-T Assessment and Plan Start: 05/05/20 08:50 Freq: Status: Active Protocol: Document 06/23/20 12:01 AW (Rec: 06/23/20 12:24 AW [email or web address]) Physical Therapy Assessment Goals Four Impairment pain with gardening Short Term Goal (STG) Pt will tolerate shoveling 10 minutes without increased pain MET 06/09/20 STG Duration 06/02/20 Residential Goal (LTG) Pt will tolerate shoveling or raking 20 minutes without increased pain LTG Duration 06/30/20 Three Impairment strength Residential Goal (LTG) Pt will demonstrate 5/5 strength in left shoulder without increase in pain LTG Duration 06/30/20 Two Impairment functional impairment in daily activities Short Term Goal (STG) Pt will score 10 or less on QuickDash to demonstrate improved daily function STG Duration 06/02/20 Refrigerating Machine Operator Goal (LTG) Pt will score 5 or less on QuickDash to demonstrate improvement in daily functional activities LTG Duration 06/30/20 One Impairment Pt has no appropriate HEP Short Term Goal (STG) Pt will be independent with HEP for support of therapy services provided in clinic MET 06/09/20 STG Duration 06/02/20 Refrigerating Machine Operator Goal (LTG) Pt will be independent with maintenance HEP LTG Duration 06/30/20 Assessment Summary Assessment Pt complains of increased right posterior shoulder pain and reduced left cervical rotation. Discussed need for further activity modification to allow for rest and healing which will be challenging for this right-handed patient who uses her computer heavily for work and mouses with her right hand. Neck screen was negative. Pt reports improved symptoms with GH distraction. Pt has progressed toward goals but continues to be limited by shoulder pain and would benefit from extending her plan of care to continue to improve functional activity with reduced pain. Physical Therapy Plan Frequency and Duration Frequency of Treatment 1x/Week Duration of Treatment 15 Plan of Care Start Date 05/05/20 Plan of Care End Date 08/25/20 Therapeutic Interventions Therapeutic Interventions Home Exercise Program,Joint Mobilizations,Manual Therapy, Self-Care/Home Management,Soft Tissue Mobilization,Taping, Therapeutic Activities, Therapeutic Exercises Modalities Cold Pack/Ice Massage,Hot Packs Next Visit Focus/Plan Next Note Type Treatment Note Next Visit Plan progress postural awareness and periscapular strength, GH strength bilaterally. Work on posture and alignment during functional tasks of gardening, biking.
--- NOTE | 2020-06-23 12:25 | PT.OPPOC ---
Physical, Occupational & Speech Therapy At [facility] Current Diagnoses Pain in left shoulder (06/23/20) Abnormal posture (06/23/20) Visit Care Team Role Provider Type aL Mcpherson PA-C Attending Provider Advanced Medical Representative Primary Care Provider Referring Provider Specialty: Internal Medicine Address: [address] [place] [address], [phone] Email: [email or web address] Plan Of Care PT-OP-T Assessment and Plan Start: 05/05/20 08:50 Freq: Status: Active Protocol: Document 06/23/20 12:01 AW (Rec: 06/23/20 12:24 AW [email or web address]) Physical Therapy Assessment Goals Four Impairment pain with gardening Short Term Goal (STG) Pt will tolerate shoveling 10 minutes without increased pain MET 06/09/20 STG Duration 06/02/20 Mcfp Goal (LTG) Pt will tolerate shoveling or raking 20 minutes without increased pain LTG Duration 06/30/20 Three Impairment strength Printing Press Machinist Goal (LTG) Pt will demonstrate 5/5 strength in left shoulder without increase in pain LTG Duration 06/30/20 Two Impairment functional impairment in daily activities Short Term Goal (STG) Pt will score 10 or less on QuickDash to demonstrate improved daily function STG Duration 06/02/20 Mcfp Goal (LTG) Pt will score 5 or less on QuickDash to demonstrate improvement in daily functional activities LTG Duration 06/30/20 One Impairment Pt has no appropriate HEP Short Term Goal (STG) Pt will be independent with HEP for support of therapy services provided in clinic MET 06/09/20 STG Duration 06/02/20 Mcfp Goal (LTG) Pt will be independent with maintenance HEP LTG Duration 06/30/20 Assessment Summary Assessment Pt complains of increased right posterior shoulder pain and reduced left cervical rotation. Discussed need for further activity modification to allow for rest and healing which will be challenging for this right-handed patient who uses her computer heavily for work and mouses with her right hand. Neck screen was negative. Pt reports improved symptoms with GH distraction. Pt has progressed toward goals but continues to be limited by shoulder pain and would benefit from extending her plan of care to continue to improve functional activity with reduced pain. Physical Therapy Plan Frequency and Duration Frequency of Treatment 1x/Week Duration of Treatment 15 Plan of Care Start Date 05/05/20 Plan of Care End Date 08/25/20 Therapeutic Interventions Therapeutic Interventions Home Exercise Program,Joint Mobilizations,Manual Therapy, Self-Care/Home Management,Soft Tissue Mobilization,Taping, Therapeutic Activities, Therapeutic Exercises Modalities Cold Pack/Ice Massage,Hot Packs Next Visit Focus/Plan Next Note Type Treatment Note Next Visit Plan progress postural awareness and periscapular strength, GH strength bilaterally. Work on posture and alignment during functional tasks of gardening, biking. Plan of Care Dates Plan of Care Start Date 05/05/20 Plan of Care End Date 08/25/20 Electronically Signed by: Martha Stevens, PT 06/23/20 [id number] Please Sign and Return: I have reviewed this Plan of Care and certify that the skilled therapy services above are required to meet the patient?s needs. Physician Signature Date Printed Name and Credentials Clinical Instructor Signature Printed Name and Credentials
--- NOTE | 2020-06-30 17:40 | PT.OTN ---
Current Diagnoses Pain in left shoulder (06/30/20) Abnormal posture (06/30/20) Physical Therapy Treatment Note PT-OP-A Visit Information Start: 05/05/20 08:50 Freq: Status: Active Protocol: Document 06/30/20 17:31 AW (Rec: 06/30/20 17:33 AW [email or web address]) Out-Patient Physical Therapy Visit Information Visit Information Visit Type Treatment Note Visit Start Time 15:15 Visit Stop Time 16:00 Total Visit Minutes 45 Visit Number 9 Evaluation Information Evaluation Date 05/05/20 PT-OP-B Current Condition Start: 05/05/20 08:50 Freq: Status: Active Protocol: Document 05/05/20 08:51 AW (Rec: 05/05/20 08:53 AW [id number]) Current Condition History of Current Condition Onset Date 04/11/20 Current Complaints left shoulder pain History of Current Condition Piedad was doing heavy gardening with a lot of rock shoveling and gardening. She had onset of pain ~04/11/20. She moved 5 cubic yards of rocks in a few days and noticed pain beginning on Sunday. When it didn't improve , she went to urgent care on where she received treatment with toradol. She was also provided with a predinisone burst with taper which she finished. Treatment was effective, but she would like to regain full pain-free ROM. She attempted to do some shoveling a few days ago, but noticed pain after a few minutes so she stopped. She is using Tylenol prn and finds it effective for managing her pain. Prior Treatments and Tests Toradol 30 mg at urgent care . Ice, tylenol, ibuprofen Pt has had prior PT for knee problems including ACL reconstruction x 2. Future Testing and Treatments Planned None identified. Treatment Goals Patient/Caregiver Goals Pt has more gardening projects she would like to complete but is willing to modify her activity at this time. Her shoulder bothers her when biking, running, and hiking. She hopes to get back to those activities without pain. 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 Baseline Function- Recreation/Hobbies Pt stays active with weightlifting, yoga, hiking, biking, gardening. Current Functional Impairments (Reported) Functional Limitations- ADL's Difficulty donning a shirt at first but symtoms have improved. Functional Limitations- Work/School Pt finds her left shoulder aching during prolonged periods of time at the computer. Functional Limitations- Recreation/ Pain with gardening, biking, Hobbies hiking, running, and yoga Personal Factors Other Personal Factors That May Effect (+) positive prior experience Therapy/Recovery with PT (+) pt is generally active and accustomed to exercise (-) long hours at a computer required for work PT-OP-C Subjective Start: 05/05/20 08:50 Freq: Status: Active Protocol: Document 06/30/20 17:31 AW (Rec: 07/04/20 16:15 AW [id number]) OP-PT Subjective Patient Comments Patient Comments Pain has improved this week, maybe because I've been giving it more rest. Patient Reported Progress Improving PT-OP-F Manual Assessment Start: 05/05/20 08:50 Freq: Status: Active Protocol: Document 05/05/20 08:51 AW (Rec: 05/05/20 13:04 AW [id number]) Manual Assessments Soft Tissue Assessment Soft Tissue Mobility Assessment Pt has increased density of bilateral upper trapezius. Joint Mobility Assessment Joint Mobility Assessment Left GH posterior glides painful but without restriction. Inferior glides normal bilaterally without pain. Decreased A/P glides upper thoracic spine. PT-OP-H Neuro Start: 05/05/20 08:50 Freq: Status: Active Protocol: Document 05/05/20 08:51 AW (Rec: 05/05/20 13:04 AW [id number]) Sensation Evaluation Gross Sensation Gross Sensation WNL PT-OP-J Posture/Palpation/Skin Start: 05/05/20 08:50 Freq: Status: Active Protocol: Document 05/05/20 08:51 AW (Rec: 05/05/20 13:04 AW [id number]) Posture Evaluation Position Sitting Evaluation View Lateral Head/C-Spine Posture Forward Head Shoulder Posture (L) Rounded,(R) Rounded,(L) Forward,(R) Forward Scapula Posture (L) Protracted,(R) Protracted Arm Posture (L) Internally Rotated,(R) Internally Rotated PT-OP-K Range of Motion Start: 05/05/20 08:50 Freq: Status: Active Protocol: Document 05/05/20 08:51 AW (Rec: 05/05/20 13:04 AW [id number]) Cervical Spine Range of Motion Cervical Spine Active Degrees Testing Position Sitting Flexion 60 Extension 75 Rotation Left 47 Rotation Right 40 Lateral Flexion Left 40 Lateral Flexion Right 40 ROM Limitations Soft Tissue Tightness Shoulder Goniometric Range of Motion Shoulder Left Active Shoulder ROM WFL Yes Testing Position Sitting Flexion 180 Abduction 180 External Rotation at 90 degrees 80 Abduction Internal Rotation Behind Back (text) T8 Right Active Shoulder ROM WFL Yes Flexion 183 Abduction 182 External Rotation at 90 degrees 85 Abduction Internal Rotation Behind Back (text) T3 Shoulder ROM Limitations Shoulder ROM Limitations Soft Tissue Tightness,Pain Comments Pt has left shoulder pain at end range flexion and abduction Elbow/Forearm Range of Motion Elbow/Forearm ROM Limitations Comments Elbow AROM/PROM WNL bilaterally PT-OP-L Special Tests Start: 05/05/20 08:50 Freq: Status: Active Protocol: Document 05/05/20 08:51 AW (Rec: 05/05/20 13:04 AW [id number]) Special Tests Shoulder Special Tests painful arc Test Results negative bilaterally Drop Arm Rotator Cuff Test Results negative bilaterally Cunningham Nicolás Impingement Test Results normal R; vaguely positive L PT-OP-M Strength Start: 05/05/20 08:50 Freq: Status: Active Protocol: Document 05/05/20 08:51 AW (Rec: 05/05/20 13:04 AW [id number]) Cervical Spine Strength Cervical Spine Manual Muscle Testing Testing Position Sitting Flexion (C1-2) 5 Normal Extension 5 Normal Rotation Left 4+ Good+ Rotation Right 4+ Good+ Lateral Flexion Left (C3) 5 Normal Lateral Flexion Right (C3) 5 Normal Shoulder Strength Shoulder Manual Muscle Testing Right Flexion 5 Normal Extension 5 Normal Abduction (C5) 5 Normal External Rotation 5 Normal Left Flexion 4+ Good+ Abduction (C5) 4+ Good+ External Rotation 4+ Good+ Comments painful ER PT-OP-Q Treatments Start: 05/05/20 08:50 Freq: Status: Active Protocol: Document 06/30/20 17:31 AW (Rec: 07/04/20 16:15 AW [id number]) Gym Equipment Cable Column (Body Solid) scapular depression Details scapular depression, straight arms Resistance 50# Reps/Time 10 reps x 2 Therapeutic Exercises Supine Exercises lower trap push Supine Exercise Name lower trap push Side bilateral Reps/Minutes 5 sec hold x 10 Comments hooklying; stretch hands twd feet and press palms down Prone Exercises prone T's, Y's Prone Exercise Name prone T's, Y's Side bilateral Resistance 2# Equipment Used db Reps/Minutes 12 reps x 2 Comments cued palms down GH extension Prone Exercise Name GH extension Side bilateral Resistance 2# Equipment Used db Reps/Minutes 12 reps x 2 Comments palms up; cued scap retraction , small controlled movement Standing Exercises DB rows Standing Exercise Name DB rows Side bilateral Resistance 5# Equipment Used db Reps/Minutes 10 reps x 2 Comments cued palms down wall slides - serratus anterior activation Standing Exercise Name wall slides - diagonal with liftoff Side bilateral Reps/Minutes 10 x 2 Comments cues to control T-L extension Manual Therapy Treatment Soft Tissue Mobilization STM Body Location B upper traps, lev scap, scalenes Mobilization Type Myofascial Release,Sustained Pressure,Trigger Point Release Intensity/Depth Moderate Body Position Hooklying Comments upper traps density reduced post STM with improved overhead ROM and cervical rotation Joint Mobilizations first rib Direction depression Grade III Body Position Supine Comments 3 min Self-Care/Home Management Treatment Education Patient Education Body Mechanics,Joint Protection,Posture Other Education activity modification - specifically taking a break from loaded overhead activity PT-OP-T Assessment and Plan Start: 05/05/20 08:50 Freq: Status: Active Protocol: Document 06/30/20 17:31 AW (Rec: 07/04/20 16:15 AW [id number]) Physical Therapy Assessment Rehab Potential Rehabilitation Potential Excellent Goals Four Impairment pain with gardening Short Term Goal (STG) Pt will tolerate shoveling 10 minutes without increased pain MET 06/09/20 STG Duration 06/02/20 Snf Goal (LTG) Pt will tolerate shoveling or raking 20 minutes without increased pain LTG Duration 07/21/20 Three Impairment strength Manager Net Goal (LTG) Pt will demonstrate 5/5 strength in left shoulder without increase in pain LTG Duration 07/21/20 Two Impairment functional impairment in daily activities Short Term Goal (STG) Pt will score 10 or less on QuickDash to demonstrate improved daily function STG Duration 06/02/20 Manager Net Goal (LTG) Pt will score 5 or less on QuickDash to demonstrate improvement in daily functional activities LTG Duration 07/21/20 One Impairment Pt has no appropriate HEP Short Term Goal (STG) Pt will be independent with HEP for support of therapy services provided in clinic MET 06/09/20 STG Duration 06/02/20 Manager Net Goal (LTG) Pt will be independent with maintenance HEP LTG Duration 07/21/20 Assessment Summary Assessment Pt has greater insight into her condition at this session, expressing reluctant understanding of improved pain related to reduced weightlifting. All exercises modified today to stress internal rotation of the GH joint with good results and pt reporting improved tolerance. Pt continues to progress toward goals. Physical Therapy Plan Frequency and Duration Frequency of Treatment 1x/Week Duration of Treatment 15 Plan of Care Start Date 05/05/20 Plan of Care End Date 08/25/20 Therapeutic Interventions Therapeutic Interventions Home Exercise Program,Joint Mobilizations,Manual Therapy, Self-Care/Home Management,Soft Tissue Mobilization,Taping, Therapeutic Activities, Therapeutic Exercises Modalities Cold Pack/Ice Massage,Hot Packs Next Visit Focus/Plan Next Note Type Treatment Note Next Visit Plan progress postural awareness and periscapular strength, GH strength bilaterally. Work on posture and alignment during functional tasks of gardening, biking.
--- NOTE | 2020-07-07 12:15 | PT.OTN ---
Current Diagnoses Pain in left shoulder (07/07/20) Abnormal posture (07/07/20) Physical Therapy Treatment Note PT-OP-A Visit Information Start: 05/05/20 08:50 Freq: Status: Active Protocol: Document 07/07/20 12:00 AW (Rec: 07/07/20 12:15 AW [email or web address]) Out-Patient Physical Therapy Visit Information Visit Information Visit Type Treatment Note Visit Start Time 11:15 Visit Stop Time 11:58 Total Visit Minutes 43 Visit Number 10 Evaluation Information Evaluation Date 05/05/20 PT-OP-B Current Condition Start: 05/05/20 08:50 Freq: Status: Active Protocol: Document 05/05/20 08:51 AW (Rec: 05/05/20 08:53 AW [id number]) Current Condition History of Current Condition Onset Date 04/11/20 Current Complaints left shoulder pain History of Current Condition Piedad was doing heavy gardening with a lot of rock shoveling and gardening. She had onset of pain ~04/11/20. She moved 5 cubic yards of rocks in a few days and noticed pain beginning on Sunday. When it didn't improve , she went to urgent care on where she received treatment with toradol. She was also provided with a predinisone burst with taper which she finished. Treatment was effective, but she would like to regain full pain-free ROM. She attempted to do some shoveling a few days ago, but noticed pain after a few minutes so she stopped. She is using Tylenol prn and finds it effective for managing her pain. Prior Treatments and Tests Toradol 30 mg at urgent care . Ice, tylenol, ibuprofen Pt has had prior PT for knee problems including ACL reconstruction x 2. Future Testing and Treatments Planned None identified. Treatment Goals Patient/Caregiver Goals Pt has more gardening projects she would like to complete but is willing to modify her activity at this time. Her shoulder bothers her when biking, running, and hiking. She hopes to get back to those activities without pain. 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 Baseline Function- Recreation/Hobbies Pt stays active with weightlifting, yoga, hiking, biking, gardening. Current Functional Impairments (Reported) Functional Limitations- ADL's Difficulty donning a shirt at first but symtoms have improved. Functional Limitations- Work/School Pt finds her left shoulder aching during prolonged periods of time at the computer. Functional Limitations- Recreation/ Pain with gardening, biking, Hobbies hiking, running, and yoga Personal Factors Other Personal Factors That May Effect (+) positive prior experience Therapy/Recovery with PT (+) pt is generally active and accustomed to exercise (-) long hours at a computer required for work PT-OP-C Subjective Start: 05/05/20 08:50 Freq: Status: Active Protocol: Document 07/07/20 12:00 AW (Rec: 07/07/20 12:15 AW [email or web address]) OP-PT Subjective Patient Comments Patient Comments I started a new program in my fitness grace but I'm doing all arm movements without weights . Patient Reported Progress Improving PT-OP-F Manual Assessment Start: 05/05/20 08:50 Freq: Status: Active Protocol: Document 05/05/20 08:51 AW (Rec: 05/05/20 13:04 AW [id number]) Manual Assessments Soft Tissue Assessment Soft Tissue Mobility Assessment Pt has increased density of bilateral upper trapezius. Joint Mobility Assessment Joint Mobility Assessment Left GH posterior glides painful but without restriction. Inferior glides normal bilaterally without pain. Decreased A/P glides upper thoracic spine. PT-OP-H Neuro Start: 05/05/20 08:50 Freq: Status: Active Protocol: Document 05/05/20 08:51 AW (Rec: 05/05/20 13:04 AW [id number]) Sensation Evaluation Gross Sensation Gross Sensation WNL PT-OP-J Posture/Palpation/Skin Start: 05/05/20 08:50 Freq: Status: Active Protocol: Document 05/05/20 08:51 AW (Rec: 05/05/20 13:04 AW [id number]) Posture Evaluation Position Sitting Evaluation View Lateral Head/C-Spine Posture Forward Head Shoulder Posture (L) Rounded,(R) Rounded,(L) Forward,(R) Forward Scapula Posture (L) Protracted,(R) Protracted Arm Posture (L) Internally Rotated,(R) Internally Rotated PT-OP-K Range of Motion Start: 05/05/20 08:50 Freq: Status: Active Protocol: Document 05/05/20 08:51 AW (Rec: 05/05/20 13:04 AW [id number]) Cervical Spine Range of Motion Cervical Spine Active Degrees Testing Position Sitting Flexion 60 Extension 75 Rotation Left 47 Rotation Right 40 Lateral Flexion Left 40 Lateral Flexion Right 40 ROM Limitations Soft Tissue Tightness Shoulder Goniometric Range of Motion Shoulder Left Active Shoulder ROM WFL Yes Testing Position Sitting Flexion 180 Abduction 180 External Rotation at 90 degrees 80 Abduction Internal Rotation Behind Back (text) T8 Right Active Shoulder ROM WFL Yes Flexion 183 Abduction 182 External Rotation at 90 degrees 85 Abduction Internal Rotation Behind Back (text) T3 Shoulder ROM Limitations Shoulder ROM Limitations Soft Tissue Tightness,Pain Comments Pt has left shoulder pain at end range flexion and abduction Elbow/Forearm Range of Motion Elbow/Forearm ROM Limitations Comments Elbow AROM/PROM WNL bilaterally PT-OP-L Special Tests Start: 05/05/20 08:50 Freq: Status: Active Protocol: Document 05/05/20 08:51 AW (Rec: 05/05/20 13:04 AW [id number]) Special Tests Shoulder Special Tests painful arc Test Results negative bilaterally Drop Arm Rotator Cuff Test Results negative bilaterally Cunningham Nicolás Impingement Test Results normal R; vaguely positive L PT-OP-M Strength Start: 05/05/20 08:50 Freq: Status: Active Protocol: Document 05/05/20 08:51 AW (Rec: 05/05/20 13:04 AW [id number]) Cervical Spine Strength Cervical Spine Manual Muscle Testing Testing Position Sitting Flexion (C1-2) 5 Normal Extension 5 Normal Rotation Left 4+ Good+ Rotation Right 4+ Good+ Lateral Flexion Left (C3) 5 Normal Lateral Flexion Right (C3) 5 Normal Shoulder Strength Shoulder Manual Muscle Testing Right Flexion 5 Normal Extension 5 Normal Abduction (C5) 5 Normal External Rotation 5 Normal Left Flexion 4+ Good+ Abduction (C5) 4+ Good+ External Rotation 4+ Good+ Comments painful ER PT-OP-Q Treatments Start: 05/05/20 08:50 Freq: Status: Active Protocol: Document 07/07/20 12:00 AW (Rec: 07/07/20 12:15 AW [email or web address]) Gym Equipment Cable Column (Body Solid) scapular depression Details scapular depression, straight arms Resistance 50# Reps/Time 10 reps x 2 Therapeutic Exercises Supine Exercises rhythmic stabilization Supine Exercise Name rhythmic stabilization with and w/o protraction Side bilateral Resistance manual Reps/Minutes 2 min Comments with shoulder in 90 deg flexion, pt resisting manually applied force Prone Exercises prone T's, Y's Prone Exercise Name prone T's, Y's Side bilateral Resistance 2# Equipment Used db, large ball Reps/Minutes 12 reps x 2 Comments cued palms down Standing Exercises eccentric scaption, flexion, abduction Standing Exercise Name eccentric scaption, flexion, abduction Side bilateral Resistance 2# Equipment Used db Reps/Minutes 10 reps each plane Comments biased internal rotation cervical flexion stretch Standing Exercise Name cervical flexion stretch Resistance manual Reps/Minutes 30 sec x 2 DB rows Standing Exercise Name DB rows Side bilateral Resistance 5# Equipment Used db Reps/Minutes 10 reps x 2 Comments cued palms down angulo walk Standing Exercise Name angulo walk Side bilateral Resistance 10# Equipment Used db Reps/Minutes 2 min x 2 Comments for GH traction and RC activation Manual Therapy Treatment Soft Tissue Mobilization STM Body Location B upper traps, lev scap, scalenes Mobilization Type Myofascial Release,Sustained Pressure,Trigger Point Release Intensity/Depth Moderate Body Position Hooklying Comments upper traps density reduced post STM with improved overhead ROM and cervical rotation Joint Mobilizations first rib Direction depression Grade III Body Position Supine Comments 3 min AC Joint gapping Comments with active and passive GH movement Self-Care/Home Management Treatment Education Patient Education Body Mechanics,Joint Protection,Posture Other Education activity modification - specifically taking a break from loaded overhead activity PT-OP-T Assessment and Plan Start: 05/05/20 08:50 Freq: Status: Active Protocol: Document 07/07/20 12:00 AW (Rec: 07/07/20 12:15 AW [email or web address]) Physical Therapy Assessment Goals Four Impairment pain with gardening Short Term Goal (STG) Pt will tolerate shoveling 10 minutes without increased pain MET 06/09/20 STG Duration 06/02/20 Fpc Goal (LTG) Pt will tolerate shoveling or raking 20 minutes without increased pain LTG Duration 07/21/20 Three Impairment strength Fpc Goal (LTG) Pt will demonstrate 5/5 strength in left shoulder without increase in pain LTG Duration 07/21/20 Two Impairment functional impairment in daily activities Short Term Goal (STG) Pt will score 10 or less on QuickDash to demonstrate improved daily function STG Duration 06/02/20 Fpc Goal (LTG) Pt will score 5 or less on QuickDash to demonstrate improvement in daily functional activities LTG Duration 07/21/20 One Impairment Pt has no appropriate HEP Short Term Goal (STG) Pt will be independent with HEP for support of therapy services provided in clinic MET 06/09/20 STG Duration 06/02/20 Fpc Goal (LTG) Pt will be independent with maintenance HEP LTG Duration 07/21/20 Assessment Summary Assessment Pt continues to report incremental improvement and has heeded counseling to restrict loaded overhead movement. Treatment today focused on eccentric loading in pain free range with good tolerance. Physical Therapy Plan Frequency and Duration Frequency of Treatment 1x/Week Duration of Treatment 15 Plan of Care Start Date 05/05/20 Plan of Care End Date 08/25/20 Therapeutic Interventions Therapeutic Interventions Home Exercise Program,Joint Mobilizations,Manual Therapy, Self-Care/Home Management,Soft Tissue Mobilization,Taping, Therapeutic Activities, Therapeutic Exercises Modalities Cold Pack/Ice Massage,Hot Packs Next Visit Focus/Plan Next Note Type Treatment Note Next Visit Plan progress postural awareness and periscapular strength, GH strength bilaterally. Work on posture and alignment during functional tasks of gardening, biking.
--- NOTE | 2020-07-14 12:24 | PT.OTN ---
Current Diagnoses Pain in left shoulder (07/14/20) Abnormal posture (07/14/20) Physical Therapy Treatment Note PT-OP-A Visit Information Start: 05/05/20 08:50 Freq: Status: Active Protocol: Document 07/14/20 12:12 AW (Rec: 07/14/20 12:24 AW [email or web address]) Out-Patient Physical Therapy Visit Information Visit Information Visit Type Treatment Note Visit Start Time 11:16 Visit Stop Time 12:00 Total Visit Minutes 44 Visit Number 11 Evaluation Information Evaluation Date 05/05/20 PT-OP-B Current Condition Start: 05/05/20 08:50 Freq: Status: Active Protocol: Document 05/05/20 08:51 AW (Rec: 05/05/20 08:53 AW [id number]) Current Condition History of Current Condition Onset Date 04/11/20 Current Complaints left shoulder pain History of Current Condition Piedad was doing heavy gardening with a lot of rock shoveling and gardening. She had onset of pain ~04/11/20. She moved 5 cubic yards of rocks in a few days and noticed pain beginning on Sunday. When it didn't improve , she went to urgent care on where she received treatment with toradol. She was also provided with a predinisone burst with taper which she finished. Treatment was effective, but she would like to regain full pain-free ROM. She attempted to do some shoveling a few days ago, but noticed pain after a few minutes so she stopped. She is using Tylenol prn and finds it effective for managing her pain. Prior Treatments and Tests Toradol 30 mg at urgent care . Ice, tylenol, ibuprofen Pt has had prior PT for knee problems including ACL reconstruction x 2. Future Testing and Treatments Planned None identified. Treatment Goals Patient/Caregiver Goals Pt has more gardening projects she would like to complete but is willing to modify her activity at this time. Her shoulder bothers her when biking, running, and hiking. She hopes to get back to those activities without pain. 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 Baseline Function- Recreation/Hobbies Pt stays active with weightlifting, yoga, hiking, biking, gardening. Current Functional Impairments (Reported) Functional Limitations- ADL's Difficulty donning a shirt at first but symtoms have improved. Functional Limitations- Work/School Pt finds her left shoulder aching during prolonged periods of time at the computer. Functional Limitations- Recreation/ Pain with gardening, biking, Hobbies hiking, running, and yoga Personal Factors Other Personal Factors That May Effect (+) positive prior experience Therapy/Recovery with PT (+) pt is generally active and accustomed to exercise (-) long hours at a computer required for work PT-OP-C Subjective Start: 05/05/20 08:50 Freq: Status: Active Protocol: Document 07/14/20 12:12 AW (Rec: 07/14/20 12:24 AW [email or web address]) OP-PT Subjective Patient Comments Patient Comments I had a good day after last treatment but then have had increasing pain in my right shoulder since then. Patient Reported Progress Same PT-OP-F Manual Assessment Start: 05/05/20 08:50 Freq: Status: Active Protocol: Document 05/05/20 08:51 AW (Rec: 05/05/20 13:04 AW [id number]) Manual Assessments Soft Tissue Assessment Soft Tissue Mobility Assessment Pt has increased density of bilateral upper trapezius. Joint Mobility Assessment Joint Mobility Assessment Left GH posterior glides painful but without restriction. Inferior glides normal bilaterally without pain. Decreased A/P glides upper thoracic spine. PT-OP-H Neuro Start: 05/05/20 08:50 Freq: Status: Active Protocol: Document 05/05/20 08:51 AW (Rec: 05/05/20 13:04 AW [id number]) Sensation Evaluation Gross Sensation Gross Sensation WNL PT-OP-J Posture/Palpation/Skin Start: 05/05/20 08:50 Freq: Status: Active Protocol: Document 05/05/20 08:51 AW (Rec: 05/05/20 13:04 AW [id number]) Posture Evaluation Position Sitting Evaluation View Lateral Head/C-Spine Posture Forward Head Shoulder Posture (L) Rounded,(R) Rounded,(L) Forward,(R) Forward Scapula Posture (L) Protracted,(R) Protracted Arm Posture (L) Internally Rotated,(R) Internally Rotated PT-OP-K Range of Motion Start: 05/05/20 08:50 Freq: Status: Active Protocol: Document 05/05/20 08:51 AW (Rec: 05/05/20 13:04 AW [id number]) Cervical Spine Range of Motion Cervical Spine Active Degrees Testing Position Sitting Flexion 60 Extension 75 Rotation Left 47 Rotation Right 40 Lateral Flexion Left 40 Lateral Flexion Right 40 ROM Limitations Soft Tissue Tightness Shoulder Goniometric Range of Motion Shoulder Left Active Shoulder ROM WFL Yes Testing Position Sitting Flexion 180 Abduction 180 External Rotation at 90 degrees 80 Abduction Internal Rotation Behind Back (text) T8 Right Active Shoulder ROM WFL Yes Flexion 183 Abduction 182 External Rotation at 90 degrees 85 Abduction Internal Rotation Behind Back (text) T3 Shoulder ROM Limitations Shoulder ROM Limitations Soft Tissue Tightness,Pain Comments Pt has left shoulder pain at end range flexion and abduction Elbow/Forearm Range of Motion Elbow/Forearm ROM Limitations Comments Elbow AROM/PROM WNL bilaterally PT-OP-L Special Tests Start: 05/05/20 08:50 Freq: Status: Active Protocol: Document 05/05/20 08:51 AW (Rec: 05/05/20 13:04 AW [id number]) Special Tests Shoulder Special Tests painful arc Test Results negative bilaterally Drop Arm Rotator Cuff Test Results negative bilaterally Cunningham Nicolás Impingement Test Results normal R; vaguely positive L PT-OP-M Strength Start: 05/05/20 08:50 Freq: Status: Active Protocol: Document 05/05/20 08:51 AW (Rec: 05/05/20 13:04 AW [id number]) Cervical Spine Strength Cervical Spine Manual Muscle Testing Testing Position Sitting Flexion (C1-2) 5 Normal Extension 5 Normal Rotation Left 4+ Good+ Rotation Right 4+ Good+ Lateral Flexion Left (C3) 5 Normal Lateral Flexion Right (C3) 5 Normal Shoulder Strength Shoulder Manual Muscle Testing Right Flexion 5 Normal Extension 5 Normal Abduction (C5) 5 Normal External Rotation 5 Normal Left Flexion 4+ Good+ Abduction (C5) 4+ Good+ External Rotation 4+ Good+ Comments painful ER PT-OP-Q Treatments Start: 05/05/20 08:50 Freq: Status: Active Protocol: Document 07/14/20 12:12 AW (Rec: 07/14/20 12:24 AW [email or web address]) Gym Equipment Cable Column (Body Solid) scapular depression Details scapular depression, straight arms Resistance 50# Reps/Time 10 reps x 2 Therapeutic Ball prone walkout + Exercise Details prone walkout + Ball Size/Color 65 cm Body Position Prone Reps/Duration x 10 Comments walkout slightly past hips + half pushup with scap protraction; improved alignment through the neck Therapeutic Exercises Sitting Exercises UT stretch Reps/Minutes 2x30 Comments hand holding chair or under buttock Standing Exercises bodyblade Standing Exercise Name bodyblade Side bilateral Reps/Minutes 1 min each side Comments horizontal and vertical wall posture Standing Exercise Name w/90/90 ER and with W slides Side bilateral Reps/Minutes 15 reactive isometric walkouts IR/ER Standing Exercise Name reactive isometric walkouts IR /ER Side bilateral Resistance level 1 Equipment Used TB Reps/Minutes 2 laps each Comments no pain resisted extension Standing Exercise Name resisted extension Side bilateral Resistance level 2 Equipment Used TB Reps/Minutes 15 Comments improved scapular stability Manual Therapy Treatment Soft Tissue Mobilization STM Body Location B upper traps, lev scap, scalenes Mobilization Type Myofascial Release,Sustained Pressure,Trigger Point Release Intensity/Depth Moderate Body Position Sitting Comments significant hyperdensity at right lev scap insertion, reduced after STM Joint Mobilizations AC Joint gapping Direction relative retraction Grade III Body Position Sitting Comments with active and passive GH movement GH Joint B Direction post, inf, distraction, lat glide PT-OP-T Assessment and Plan Start: 05/05/20 08:50 Freq: Status: Active Protocol: Document 07/14/20 12:12 AW (Rec: 07/14/20 12:24 AW [email or web address]) Physical Therapy Assessment Goals Four Impairment pain with gardening Short Term Goal (STG) Pt will tolerate shoveling 10 minutes without increased pain MET 06/09/20 STG Duration 06/02/20 Area Field Person Goal (LTG) Pt will tolerate shoveling or raking 20 minutes without increased pain LTG Duration 07/21/20 Three Impairment strength Area Field Person Goal (LTG) Pt will demonstrate 5/5 strength in left shoulder without increase in pain LTG Duration 07/21/20 Two Impairment functional impairment in daily activities Short Term Goal (STG) Pt will score 10 or less on QuickDash to demonstrate improved daily function STG Duration 06/02/20 Care Home Goal (LTG) Pt will score 5 or less on QuickDash to demonstrate improvement in daily functional activities LTG Duration 07/21/20 One Impairment Pt has no appropriate HEP Short Term Goal (STG) Pt will be independent with HEP for support of therapy services provided in clinic MET 06/09/20 STG Duration 06/02/20 Care Home Goal (LTG) Pt will be independent with maintenance HEP LTG Duration 07/21/20 Assessment Summary Assessment Pt reporting overall improvement but still experiencing spikes in pain symptoms. Pt has no appointment next week due to scheduling conflict. She plans to spend some time on gardening projects this weekend. Advised pt to keep arms below shoulder level if possible. Re-assess in two weeks. Physical Therapy Plan Frequency and Duration Frequency of Treatment 1x/Week Duration of Treatment 15 Plan of Care Start Date 05/05/20 Plan of Care End Date 08/25/20 Therapeutic Interventions Therapeutic Interventions Home Exercise Program,Joint Mobilizations,Manual Therapy, Self-Care/Home Management,Soft Tissue Mobilization,Taping, Therapeutic Activities, Therapeutic Exercises Modalities Cold Pack/Ice Massage,Hot Packs Next Visit Focus/Plan Next Note Type Treatment Note Next Visit Plan progress postural awareness and periscapular strength, GH strength bilaterally. Work on posture and alignment during functional tasks of gardening, biking.
--- NOTE | 2020-07-28 12:22 | PT.OTN ---
Current Diagnoses Pain in left shoulder (07/28/20) Abnormal posture (07/28/20) Physical Therapy Treatment Note PT-OP-A Visit Information Start: 05/05/20 08:50 Freq: Status: Active Protocol: Document 07/28/20 12:05 AW (Rec: 07/28/20 12:22 AW [email or web address]) Out-Patient Physical Therapy Visit Information Visit Information Visit Type Treatment Note Visit Start Time 11:17 Visit Stop Time 12:00 Total Visit Minutes 43 Evaluation Information Evaluation Date 05/05/20 PT-OP-B Current Condition Start: 05/05/20 08:50 Freq: Status: Active Protocol: Document 05/05/20 08:51 AW (Rec: 05/05/20 08:53 AW [id number]) Current Condition History of Current Condition Onset Date 04/11/20 Current Complaints left shoulder pain History of Current Condition Piedad was doing heavy gardening with a lot of rock shoveling and gardening. She had onset of pain ~04/11/20. She moved 5 cubic yards of rocks in a few days and noticed pain beginning on Sunday. When it didn't improve , she went to urgent care on where she received treatment with toradol. She was also provided with a predinisone burst with taper which she finished. Treatment was effective, but she would like to regain full pain-free ROM. She attempted to do some shoveling a few days ago, but noticed pain after a few minutes so she stopped. She is using Tylenol prn and finds it effective for managing her pain. Prior Treatments and Tests Toradol 30 mg at urgent care . Ice, tylenol, ibuprofen Pt has had prior PT for knee problems including ACL reconstruction x 2. Future Testing and Treatments Planned None identified. Treatment Goals Patient/Caregiver Goals Pt has more gardening projects she would like to complete but is willing to modify her activity at this time. Her shoulder bothers her when biking, running, and hiking. She hopes to get back to those activities without pain. 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 Baseline Function- Recreation/Hobbies Pt stays active with weightlifting, yoga, hiking, biking, gardening. Current Functional Impairments (Reported) Functional Limitations- ADL's Difficulty donning a shirt at first but symtoms have improved. Functional Limitations- Work/School Pt finds her left shoulder aching during prolonged periods of time at the computer. Functional Limitations- Recreation/ Pain with gardening, biking, Hobbies hiking, running, and yoga Personal Factors Other Personal Factors That May Effect (+) positive prior experience Therapy/Recovery with PT (+) pt is generally active and accustomed to exercise (-) long hours at a computer required for work PT-OP-C Subjective Start: 05/05/20 08:50 Freq: Status: Active Protocol: Document 07/28/20 12:05 AW (Rec: 07/28/20 12:22 AW [email or web address]) OP-PT Subjective Patient Comments Patient Comments I feel like I'm getting more pain free range of motion. Patient Reported Progress Improving PT-OP-F Manual Assessment Start: 05/05/20 08:50 Freq: Status: Active Protocol: Document 05/05/20 08:51 AW (Rec: 05/05/20 13:04 AW [id number]) Manual Assessments Soft Tissue Assessment Soft Tissue Mobility Assessment Pt has increased density of bilateral upper trapezius. Joint Mobility Assessment Joint Mobility Assessment Left GH posterior glides painful but without restriction. Inferior glides normal bilaterally without pain. Decreased A/P glides upper thoracic spine. PT-OP-H Neuro Start: 05/05/20 08:50 Freq: Status: Active Protocol: Document 05/05/20 08:51 AW (Rec: 05/05/20 13:04 AW [id number]) Sensation Evaluation Gross Sensation Gross Sensation WNL PT-OP-J Posture/Palpation/Skin Start: 05/05/20 08:50 Freq: Status: Active Protocol: Document 05/05/20 08:51 AW (Rec: 05/05/20 13:04 AW [id number]) Posture Evaluation Position Sitting Evaluation View Lateral Head/C-Spine Posture Forward Head Shoulder Posture (L) Rounded,(R) Rounded,(L) Forward,(R) Forward Scapula Posture (L) Protracted,(R) Protracted Arm Posture (L) Internally Rotated,(R) Internally Rotated PT-OP-K Range of Motion Start: 05/05/20 08:50 Freq: Status: Active Protocol: Document 05/05/20 08:51 AW (Rec: 05/05/20 13:04 AW [id number]) Cervical Spine Range of Motion Cervical Spine Active Degrees Testing Position Sitting Flexion 60 Extension 75 Rotation Left 47 Rotation Right 40 Lateral Flexion Left 40 Lateral Flexion Right 40 ROM Limitations Soft Tissue Tightness Shoulder Goniometric Range of Motion Shoulder Left Active Shoulder ROM WFL Yes Testing Position Sitting Flexion 180 Abduction 180 External Rotation at 90 degrees 80 Abduction Internal Rotation Behind Back (text) T8 Right Active Shoulder ROM WFL Yes Flexion 183 Abduction 182 External Rotation at 90 degrees 85 Abduction Internal Rotation Behind Back (text) T3 Shoulder ROM Limitations Shoulder ROM Limitations Soft Tissue Tightness,Pain Comments Pt has left shoulder pain at end range flexion and abduction Elbow/Forearm Range of Motion Elbow/Forearm ROM Limitations Comments Elbow AROM/PROM WNL bilaterally PT-OP-L Special Tests Start: 05/05/20 08:50 Freq: Status: Active Protocol: Document 05/05/20 08:51 AW (Rec: 05/05/20 13:04 AW [id number]) Special Tests Shoulder Special Tests painful arc Test Results negative bilaterally Drop Arm Rotator Cuff Test Results negative bilaterally Cunningham Nicolás Impingement Test Results normal R; vaguely positive L PT-OP-M Strength Start: 05/05/20 08:50 Freq: Status: Active Protocol: Document 05/05/20 08:51 AW (Rec: 05/05/20 13:04 AW [id number]) Cervical Spine Strength Cervical Spine Manual Muscle Testing Testing Position Sitting Flexion (C1-2) 5 Normal Extension 5 Normal Rotation Left 4+ Good+ Rotation Right 4+ Good+ Lateral Flexion Left (C3) 5 Normal Lateral Flexion Right (C3) 5 Normal Shoulder Strength Shoulder Manual Muscle Testing Right Flexion 5 Normal Extension 5 Normal Abduction (C5) 5 Normal External Rotation 5 Normal Left Flexion 4+ Good+ Abduction (C5) 4+ Good+ External Rotation 4+ Good+ Comments painful ER PT-OP-Q Treatments Start: 05/05/20 08:50 Freq: Status: Active Protocol: Document 07/28/20 12:05 AW (Rec: 07/28/20 12:22 AW [email or web address]) Gym Equipment Cable Column (Body Solid) scapular depression Details scapular depression, straight arms Resistance 50# Reps/Time 10 reps x 2 Therapeutic Exercises Prone Exercises W's Prone Exercise Name W's - liftoff Side bilateral Reps/Minutes 10 reps x 2 Comments able to tolerate in 90 degrees abduction GH extension Prone Exercise Name GH extension Side bilateral Resistance 3# Equipment Used db Reps/Minutes 12 reps x 2 Comments palms up; cued scap retraction , small controlled movement Sitting Exercises lat dorsi stretch Sitting Exercise Name lat dorsi stretch Equipment Used dowel, rolling stool, high plinth Reps/Minutes 30 sec hold x 6 Comments 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; with active elbow flex/ext Standing Exercises paloff press Standing Exercise Name paloff press Side bilateral Resistance level 2 Equipment Used TB Reps/Minutes 10 reps Comments cues for core stab, shoulder posture cervical flexion stretch Standing Exercise Name cervical flexion stretch Resistance manual Reps/Minutes 30 sec x 2 reactive isometric walkouts IR/ER Standing Exercise Name reactive isometric walkouts IR /ER Side bilateral Resistance level 1 Equipment Used TB Reps/Minutes 2 laps each Comments no pain Therapeutic Activity Therapeutic Activity reaching/lifting Name reaching/lifting Reps/Minutes 8 min Comments picking up 1 pound ball at or just below shoulder height with focus on posterior chain recruitment Manual Therapy Treatment Soft Tissue Mobilization STM Body Location B upper traps, lev scap, scalenes Mobilization Type Myofascial Release,Sustained Pressure,Trigger Point Release Intensity/Depth Moderate Body Position Hooklying Comments included TP release R rhomboid in sitting with active protraction Joint Mobilizations first rib Direction depression Grade III Body Position Hooklying Comments right side; 3 min AC Joint gapping Direction relative retraction Grade III Body Position Sitting Comments with active and passive GH movement PT-OP-T Assessment and Plan Start: 05/05/20 08:50 Freq: Status: Active Protocol: Document 07/28/20 12:05 AW (Rec: 07/28/20 12:22 AW [email or web address]) Physical Therapy Assessment Goals Four Impairment pain with gardening Short Term Goal (STG) Pt will tolerate shoveling 10 minutes without increased pain MET 06/09/20 STG Duration 06/02/20 Assisted Goal (LTG) Pt will tolerate shoveling or raking 20 minutes without increased pain LTG Duration 08/25/20 Three Impairment strength Assisted Goal (LTG) Pt will demonstrate 5/5 strength in left shoulder without increase in pain LTG Duration 08/25/20 Two Impairment functional impairment in daily activities Short Term Goal (STG) Pt will score 10 or less on QuickDash to demonstrate improved daily function STG Duration 06/02/20 Assisted Goal (LTG) Pt will score 5 or less on QuickDash to demonstrate improvement in daily functional activities LTG Duration 08/25/20 One Impairment Pt has no appropriate HEP Short Term Goal (STG) Pt will be independent with HEP for support of therapy services provided in clinic MET 06/09/20 STG Duration 06/02/20 Assisted Goal (LTG) Pt will be independent with maintenance HEP LTG Duration 08/25/20 Assessment Summary Assessment Pt notes improvement in right shoulder pain-free ROM possibly related to activity restriction. Pt is tolerating HEP with level 2 band and will continue. Treatment focus will likely shift to functional movements to improve pt's ability to run, bike, and do yoga without pain . Physical Therapy Plan Frequency and Duration Frequency of Treatment 1x/Week Duration of Treatment 15 Plan of Care Start Date 05/05/20 Plan of Care End Date 08/25/20 Therapeutic Interventions Therapeutic Interventions Home Exercise Program,Joint Mobilizations,Manual Therapy, Self-Care/Home Management,Soft Tissue Mobilization,Taping, Therapeutic Activities, Therapeutic Exercises Modalities Cold Pack/Ice Massage,Hot Packs Next Visit Focus/Plan Next Note Type Treatment Note Next Visit Plan progress postural awareness and periscapular strength, GH strength bilaterally. Work on posture and alignment during functional tasks of gardening, biking.
--- NOTE | 2020-08-04 12:52 | PT.OTN ---
Current Diagnoses Pain in left shoulder (08/04/20) Abnormal posture (08/04/20) Physical Therapy Treatment Note PT-OP-A Visit Information Start: 05/05/20 08:50 Freq: Status: Active Protocol: Document 08/04/20 12:00 DCW (Rec: 08/04/20 12:48 DCW [id number]) Out-Patient Physical Therapy Visit Information Visit Information Visit Type Treatment Note Visit Start Time 12:00 Visit Stop Time 12:45 Total Visit Minutes 45 Visit Number 13 Evaluation Information Evaluation Date 05/05/20 PT-OP-B Current Condition Start: 05/05/20 08:50 Freq: Status: Active Protocol: Document 05/05/20 08:51 AW (Rec: 05/05/20 08:53 AW [id number]) Current Condition History of Current Condition Onset Date 04/11/20 Current Complaints left shoulder pain History of Current Condition Piedad was doing heavy gardening with a lot of rock shoveling and gardening. She had onset of pain ~04/11/20. She moved 5 cubic yards of rocks in a few days and noticed pain beginning on Sunday. When it didn't improve , she went to urgent care on where she received treatment with toradol. She was also provided with a predinisone burst with taper which she finished. Treatment was effective, but she would like to regain full pain-free ROM. She attempted to do some shoveling a few days ago, but noticed pain after a few minutes so she stopped. She is using Tylenol prn and finds it effective for managing her pain. Prior Treatments and Tests Toradol 30 mg at urgent care . Ice, tylenol, ibuprofen Pt has had prior PT for knee problems including ACL reconstruction x 2. Future Testing and Treatments Planned None identified. Treatment Goals Patient/Caregiver Goals Pt has more gardening projects she would like to complete but is willing to modify her activity at this time. Her shoulder bothers her when biking, running, and hiking. She hopes to get back to those activities without pain. 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 Baseline Function- Recreation/Hobbies Pt stays active with weightlifting, yoga, hiking, biking, gardening. Current Functional Impairments (Reported) Functional Limitations- ADL's Difficulty donning a shirt at first but symtoms have improved. Functional Limitations- Work/School Pt finds her left shoulder aching during prolonged periods of time at the computer. Functional Limitations- Recreation/ Pain with gardening, biking, Hobbies hiking, running, and yoga Personal Factors Other Personal Factors That May Effect (+) positive prior experience Therapy/Recovery with PT (+) pt is generally active and accustomed to exercise (-) long hours at a computer required for work PT-OP-C Subjective Start: 05/05/20 08:50 Freq: Status: Active Protocol: Document 08/04/20 12:00 DCW (Rec: 08/04/20 12:52 DCW [id number]) OP-PT Subjective Patient Comments Patient Comments Pt reports overall she feels she is doing fairly well. PT-OP-F Manual Assessment Start: 05/05/20 08:50 Freq: Status: Active Protocol: Document 05/05/20 08:51 AW (Rec: 05/05/20 13:04 AW [id number]) Manual Assessments Soft Tissue Assessment Soft Tissue Mobility Assessment Pt has increased density of bilateral upper trapezius. Joint Mobility Assessment Joint Mobility Assessment Left GH posterior glides painful but without restriction. Inferior glides normal bilaterally without pain. Decreased A/P glides upper thoracic spine. PT-OP-H Neuro Start: 05/05/20 08:50 Freq: Status: Active Protocol: Document 05/05/20 08:51 AW (Rec: 05/05/20 13:04 AW [id number]) Sensation Evaluation Gross Sensation Gross Sensation WNL PT-OP-J Posture/Palpation/Skin Start: 05/05/20 08:50 Freq: Status: Active Protocol: Document 05/05/20 08:51 AW (Rec: 05/05/20 13:04 AW [id number]) Posture Evaluation Position Sitting Evaluation View Lateral Head/C-Spine Posture Forward Head Shoulder Posture (L) Rounded,(R) Rounded,(L) Forward,(R) Forward Scapula Posture (L) Protracted,(R) Protracted Arm Posture (L) Internally Rotated,(R) Internally Rotated PT-OP-K Range of Motion Start: 05/05/20 08:50 Freq: Status: Active Protocol: Document 05/05/20 08:51 AW (Rec: 05/05/20 13:04 AW [id number]) Cervical Spine Range of Motion Cervical Spine Active Degrees Testing Position Sitting Flexion 60 Extension 75 Rotation Left 47 Rotation Right 40 Lateral Flexion Left 40 Lateral Flexion Right 40 ROM Limitations Soft Tissue Tightness Shoulder Goniometric Range of Motion Shoulder Left Active Shoulder ROM WFL Yes Testing Position Sitting Flexion 180 Abduction 180 External Rotation at 90 degrees 80 Abduction Internal Rotation Behind Back (text) T8 Right Active Shoulder ROM WFL Yes Flexion 183 Abduction 182 External Rotation at 90 degrees 85 Abduction Internal Rotation Behind Back (text) T3 Shoulder ROM Limitations Shoulder ROM Limitations Soft Tissue Tightness,Pain Comments Pt has left shoulder pain at end range flexion and abduction Elbow/Forearm Range of Motion Elbow/Forearm ROM Limitations Comments Elbow AROM/PROM WNL bilaterally PT-OP-L Special Tests Start: 05/05/20 08:50 Freq: Status: Active Protocol: Document 05/05/20 08:51 AW (Rec: 05/05/20 13:04 AW [id number]) Special Tests Shoulder Special Tests painful arc Test Results negative bilaterally Drop Arm Rotator Cuff Test Results negative bilaterally Cunningham Nicolás Impingement Test Results normal R; vaguely positive L PT-OP-M Strength Start: 05/05/20 08:50 Freq: Status: Active Protocol: Document 05/05/20 08:51 AW (Rec: 05/05/20 13:04 AW [id number]) Cervical Spine Strength Cervical Spine Manual Muscle Testing Testing Position Sitting Flexion (C1-2) 5 Normal Extension 5 Normal Rotation Left 4+ Good+ Rotation Right 4+ Good+ Lateral Flexion Left (C3) 5 Normal Lateral Flexion Right (C3) 5 Normal Shoulder Strength Shoulder Manual Muscle Testing Right Flexion 5 Normal Extension 5 Normal Abduction (C5) 5 Normal External Rotation 5 Normal Left Flexion 4+ Good+ Abduction (C5) 4+ Good+ External Rotation 4+ Good+ Comments painful ER PT-OP-Q Treatments Start: 05/05/20 08:50 Freq: Status: Active Protocol: Document 08/04/20 12:00 DCW (Rec: 08/04/20 12:48 DCW [id number]) Gym Equipment Therapeutic Ball prone walkout + Exercise Details prone walkout + Ball Size/Color 65 cm Body Position Prone Reps/Duration x 10 Comments walkout slightly past hips + half pushup with scap protraction; improved alignment through the neck Therapeutic Exercises Supine Exercises Serratus Punch Side bilateral Resistance 4# Prone Exercises W's Prone Exercise Name W's - liftoff Side bilateral Reps/Minutes 10 reps x 2 Comments able to tolerate in 90 degrees abduction GH extension Prone Exercise Name GH extension Side bilateral Resistance 4# Equipment Used db Reps/Minutes 12 reps x 2 Comments palms up; cued scap retraction , small controlled movement Standing Exercises paloff press Standing Exercise Name paloff press Side bilateral Resistance level 2 Equipment Used TB Reps/Minutes 10 reps Comments cues for core stab, shoulder posture Manual Therapy Treatment Soft Tissue Mobilization STM Body Location B upper traps, lev scap, scalenes Mobilization Type Myofascial Release,Sustained Pressure,Trigger Point Release Intensity/Depth Moderate Body Position Hooklying Comments included TP release R rhomboid in sitting with active protraction Joint Mobilizations first rib Direction depression Grade III Body Position Hooklying Comments right side; 3 min AC Joint gapping Direction relative retraction Grade III Body Position Sitting Comments with active and passive GH movement GH Joint B Direction post, inf, distraction, lat glide PT-OP-T Assessment and Plan Start: 05/05/20 08:50 Freq: Status: Active Protocol: Document 08/04/20 12:00 DCW (Rec: 08/04/20 12:48 DCW [id number]) Physical Therapy Assessment Goals Four Impairment pain with gardening Short Term Goal (STG) Pt will tolerate shoveling 10 minutes without increased pain MET 06/09/20 STG Duration 06/02/20 Fpc Goal (LTG) Pt will tolerate shoveling or raking 20 minutes without increased pain LTG Duration 08/25/20 Three Impairment strength Fpc Goal (LTG) Pt will demonstrate 5/5 strength in left shoulder without increase in pain LTG Duration 08/25/20 Two Impairment functional impairment in daily activities Short Term Goal (STG) Pt will score 10 or less on QuickDash to demonstrate improved daily function STG Duration 06/02/20 Fpc Goal (LTG) Pt will score 5 or less on QuickDash to demonstrate improvement in daily functional activities LTG Duration 08/25/20 One Impairment Pt has no appropriate HEP Short Term Goal (STG) Pt will be independent with HEP for support of therapy services provided in clinic MET 06/09/20 STG Duration 06/02/20 Comb Winder Goal (LTG) Pt will be independent with maintenance HEP LTG Duration 08/25/20 Assessment Summary Assessment Pt tolerated treatment well today, good strength, ROM, and stability of shoulder. Pt feels like she is likely approaching discharge, but would like to discuss with her primary therapist at her next appointment. Physical Therapy Plan Frequency and Duration Frequency of Treatment 1x/Week Duration of Treatment 15 Plan of Care Start Date 05/05/20 Plan of Care End Date 08/25/20 Therapeutic Interventions Therapeutic Interventions Home Exercise Program,Joint Mobilizations,Manual Therapy, Self-Care/Home Management,Soft Tissue Mobilization,Taping, Therapeutic Activities, Therapeutic Exercises Modalities Cold Pack/Ice Massage,Hot Packs Next Visit Focus/Plan Next Note Type Treatment Note Next Visit Plan progress postural awareness and periscapular strength, GH strength bilaterally. Work on posture and alignment during functional tasks of gardening, biking.
--- NOTE | 2020-08-11 12:35 | PT.OTN ---
Current Diagnoses Pain in left shoulder (08/11/20) Abnormal posture (08/11/20) Physical Therapy Treatment Note PT-OP-A Visit Information Start: 05/05/20 08:50 Freq: Status: Active Protocol: Document 08/11/20 12:25 AW (Rec: 08/11/20 12:35 AW [email or web address]) Out-Patient Physical Therapy Visit Information Visit Information Visit Type Discharge Summary Visit Start Time 11:16 Visit Stop Time 11:48 Total Visit Minutes 32 Visit Number 14 Evaluation Information Evaluation Date 05/05/20 PT-OP-B Current Condition Start: 05/05/20 08:50 Freq: Status: Active Protocol: Document 05/05/20 08:51 AW (Rec: 05/05/20 08:53 AW [id number]) Current Condition History of Current Condition Onset Date 04/11/20 Current Complaints left shoulder pain History of Current Condition Piedad was doing heavy gardening with a lot of rock shoveling and gardening. She had onset of pain ~04/11/20. She moved 5 cubic yards of rocks in a few days and noticed pain beginning on Sunday. When it didn't improve , she went to urgent care on where she received treatment with toradol. She was also provided with a predinisone burst with taper which she finished. Treatment was effective, but she would like to regain full pain-free ROM. She attempted to do some shoveling a few days ago, but noticed pain after a few minutes so she stopped. She is using Tylenol prn and finds it effective for managing her pain. Prior Treatments and Tests Toradol 30 mg at urgent care . Ice, tylenol, ibuprofen Pt has had prior PT for knee problems including ACL reconstruction x 2. Future Testing and Treatments Planned None identified. Treatment Goals Patient/Caregiver Goals Pt has more gardening projects she would like to complete but is willing to modify her activity at this time. Her shoulder bothers her when biking, running, and hiking. She hopes to get back to those activities without pain. 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 Baseline Function- Recreation/Hobbies Pt stays active with weightlifting, yoga, hiking, biking, gardening. Current Functional Impairments (Reported) Functional Limitations- ADL's Difficulty donning a shirt at first but symtoms have improved. Functional Limitations- Work/School Pt finds her left shoulder aching during prolonged periods of time at the computer. Functional Limitations- Recreation/ Pain with gardening, biking, Hobbies hiking, running, and yoga Personal Factors Other Personal Factors That May Effect (+) positive prior experience Therapy/Recovery with PT (+) pt is generally active and accustomed to exercise (-) long hours at a computer required for work PT-OP-C Subjective Start: 05/05/20 08:50 Freq: Status: Active Protocol: Document 08/11/20 12:25 AW (Rec: 08/11/20 12:35 AW [email or web address]) OP-PT Subjective Patient Comments Patient Comments I hate to feel like I'm giving up 100 feet from the finish line but I think I've hit a plateau. Patient Reported Progress Same PT-OP-F Manual Assessment Start: 05/05/20 08:50 Freq: Status: Active Protocol: Document 05/05/20 08:51 AW (Rec: 05/05/20 13:04 AW [id number]) Manual Assessments Soft Tissue Assessment Soft Tissue Mobility Assessment Pt has increased density of bilateral upper trapezius. Joint Mobility Assessment Joint Mobility Assessment Left GH posterior glides painful but without restriction. Inferior glides normal bilaterally without pain. Decreased A/P glides upper thoracic spine. PT-OP-H Neuro Start: 05/05/20 08:50 Freq: Status: Active Protocol: Document 05/05/20 08:51 AW (Rec: 05/05/20 13:04 AW [id number]) Sensation Evaluation Gross Sensation Gross Sensation WNL PT-OP-J Posture/Palpation/Skin Start: 05/05/20 08:50 Freq: Status: Active Protocol: Document 05/05/20 08:51 AW (Rec: 05/05/20 13:04 AW [id number]) Posture Evaluation Position Sitting Evaluation View Lateral Head/C-Spine Posture Forward Head Shoulder Posture (L) Rounded,(R) Rounded,(L) Forward,(R) Forward Scapula Posture (L) Protracted,(R) Protracted Arm Posture (L) Internally Rotated,(R) Internally Rotated PT-OP-K Range of Motion Start: 05/05/20 08:50 Freq: Status: Active Protocol: Document 05/05/20 08:51 AW (Rec: 05/05/20 13:04 AW [id number]) Cervical Spine Range of Motion Cervical Spine Active Degrees Testing Position Sitting Flexion 60 Extension 75 Rotation Left 47 Rotation Right 40 Lateral Flexion Left 40 Lateral Flexion Right 40 ROM Limitations Soft Tissue Tightness Shoulder Goniometric Range of Motion Shoulder Left Active Shoulder ROM WFL Yes Testing Position Sitting Flexion 180 Abduction 180 External Rotation at 90 degrees 80 Abduction Internal Rotation Behind Back (text) T8 Right Active Shoulder ROM WFL Yes Flexion 183 Abduction 182 External Rotation at 90 degrees 85 Abduction Internal Rotation Behind Back (text) T3 Shoulder ROM Limitations Shoulder ROM Limitations Soft Tissue Tightness,Pain Comments Pt has left shoulder pain at end range flexion and abduction Elbow/Forearm Range of Motion Elbow/Forearm ROM Limitations Comments Elbow AROM/PROM WNL bilaterally PT-OP-L Special Tests Start: 05/05/20 08:50 Freq: Status: Active Protocol: Document 05/05/20 08:51 AW (Rec: 05/05/20 13:04 AW [id number]) Special Tests Shoulder Special Tests painful arc Test Results negative bilaterally Drop Arm Rotator Cuff Test Results negative bilaterally [place] Impingement Test Results normal R; vaguely positive L PT-OP-M Strength Start: 05/05/20 08:50 Freq: Status: Active Protocol: Document 05/05/20 08:51 AW (Rec: 05/05/20 13:04 AW [id number]) Cervical Spine Strength Cervical Spine Manual Muscle Testing Testing Position Sitting Flexion (C1-2) 5 Normal Extension 5 Normal Rotation Left 4+ Good+ Rotation Right 4+ Good+ Lateral Flexion Left (C3) 5 Normal Lateral Flexion Right (C3) 5 Normal Shoulder Strength Shoulder Manual Muscle Testing Right Flexion 5 Normal Extension 5 Normal Abduction (C5) 5 Normal External Rotation 5 Normal Left Flexion 4+ Good+ Abduction (C5) 4+ Good+ External Rotation 4+ Good+ Comments painful ER PT-OP-Q Treatments Start: 05/05/20 08:50 Freq: Status: Active Protocol: Document 08/11/20 12:25 AW (Rec: 08/11/20 12:35 AW [email or web address]) Therapeutic Exercises Sitting Exercises posterior GH glide self mob Sitting Exercise Name posterior GH glide self mob Side bilateral Equipment Used gait belt/strap Comments for HEP Therapeutic Activity Therapeutic Activity reaching/lifting Name reaching/lifting Comments picking up 1 pound ball at or just below shoulder height with focus on posterior chain recruitment Manual Therapy Treatment Soft Tissue Mobilization STM Body Location B upper traps, lev scap, scalenes, pecs Mobilization Type Myofascial Release,Sustained Pressure,Trigger Point Release Intensity/Depth Moderate Body Position Hooklying Joint Mobilizations first rib Direction depression Grade III Body Position Hooklying Comments right side; 3 min AC Joint gapping Direction relative retraction Grade III Body Position Sitting Comments with active and passive GH movement GH Joint B Direction post, inf, distraction, lat glide Self-Care/Home Management Treatment Education Patient Education Home Exercise Program,Joint Protection Other Education Reviewed HEP with pt confirming understanding and good mechanics PT-OP-T Assessment and Plan Start: 05/05/20 08:50 Freq: Status: Active Protocol: Document 08/11/20 12:25 AW (Rec: 08/11/20 12:35 AW [email or web address]) Physical Therapy Assessment Goals Four Impairment pain with gardening Short Term Goal (STG) Pt will tolerate shoveling 10 minutes without increased pain MET 06/09/20 STG Duration 06/02/20 Patient Registration Representative Goal (LTG) Pt will tolerate shoveling or raking 20 minutes without increased pain 08/11/20 - Pt has been self- limiting activity. NOT MET LTG Duration 08/25/20 Three Impairment strength Senior Care Goal (LTG) Pt will demonstrate 5/5 strength in left shoulder without increase in pain 08/11/20 PARTIALLY MET - pt able to maintain test position against heavy resistance but with some pain in right anterior shoulder LTG Duration 08/25/20 Two Impairment functional impairment in daily activities Short Term Goal (STG) Pt will score 10 or less on QuickDash to demonstrate improved daily function STG Duration 06/02/20 Senior Care Goal (LTG) Pt will score 5 or less on QuickDash to demonstrate improvement in daily functional activities 08/11/20 - Pt deferred LTG Duration 08/25/20 One Impairment Pt has no appropriate HEP Short Term Goal (STG) Pt will be independent with HEP for support of therapy services provided in clinic MET 06/09/20 STG Duration 06/02/20 Patient Registration Representative Goal (LTG) Pt will be independent with maintenance HEP 08/11/20 MET LTG Duration 08/25/20 Progress Towards Goals Progress Towards Goals Progressing Toward Goals Assessment Summary Assessment Pt feels she has reached a progress plateau. She has overall improved posture and understanding of glenohumeral pathology. She is independent with HEP. Pt will be discharged from this plan of care with the understanding that she can seek a new referral if she wishes to return. Physical Therapy Plan Discharge Physical Therapy Discharge Reasons Plateau in Progress Discharge Comments Pt feels she has reached a progress plateau. She has overall improved posture and understanding of glenohumeral pathology. She is independent with HEP. Pt will be discharged from this plan of care with the understanding that she can seek a new referral if she wishes to return.
== END 2020-08-13 13:04 ==
LOC: PHYS 11:15
PROVIDERS: PCP Physician Assistant; Referring Provider Physician Assistant; Visit Provider Physician Assistant
DX: M25.512 Pain in left shoulder (principal); R29.3 Abnormal posture
CPT/HCPCS: 97110; 97140; 97161; 97530